=== PATIENT | female | born 1950 | race Caucasian/White ===

== ENCOUNTER → 2017-11-07 14:10 | Outpatient (REF) | payer OTHER, SELFPAY ==
[2017-11-07 22:18] LABS: C-Reactive Protein 0.35 mg/dL (0.0-0.3)
[2017-11-07 23:07] LABS: ESR 8 MM/HR (0-30)
[2017-11-09 10:21] LABS: Rheumatoid Factor <8 IU/mL (<12.5)
[2017-11-09 14:23] LABS: ANA Interpretation Negative (NEGAT)
== END ==
LOC: NCHCN 14:10
PROVIDERS: PCP Physician Assistant Medical; Visit Provider Physician Assistant Medical
DX: M79.643 Pain in unspecified hand (principal)
CPT/HCPCS: 85652; 86038; 86140; 86431

== ENCOUNTER 2018-05-29 08:14 | Outpatient (REF) | payer OTHER, SELFPAY ==
[2018-05-29 13:34] LABS: HCT 42.5 % (36.0-46.0); HGB 13.8 g/dL (12.0-15.5); Mean Corp. HGB Concentration 32.5 g/dL (32.0-36.0); Mean Corpuscular Hemoglobin 29.7 pg (27.0-33.0); Mean Corpuscular Volume 91.6 fL (80-95); Mean Platelet Volume 10.4 fL (8.0-11.0); Platelet Count 351 x1000/uL (130-400); RBC 4.64 m/cumm (4.00-5.20)
== END 2018-05-29 08:34 ==
LOC: NCHCN 08:14
PROVIDERS: PCP Family Medicine; Visit Provider Family Medicine
DX: I10 Essential (primary) hypertension (principal); R73.9 Hyperglycemia, unspecified
CPT/HCPCS: 80053; 85027

== ENCOUNTER 2018-06-01 09:04 | Outpatient (REF) | payer OTHER, SELFPAY ==
[2018-06-01 12:26] LABS: ALT 21 U/L (12-78); AST 16 U/L (15-37); Albumin 3.7 g/dL (3.4-5.0); Alkaline Phosphatase 121 U/L (46-116); Anion Gap 9.6 mmol/L (3-11); BUN 14 mg/dL (7-18); Bilirubin, Total 0.4 mg/dL (0.2-1.0); CO2 27.4 mmol/L (21.0-32.0); CREATININE 0.65 mg/dL (0.55-1.02); Calcium 8.9 mg/dL (8.5-10.1); Chloride 105 mmol/L (98-107); Cholesterol 241 mg/dL (50-200); Glucose 100 mg/dL (70-100); HDL Cholesterol 46 mg/dL (40-60); LDL CHOLESTEROL 183 mg/dL (<100); Potassium 4.4 mmol/L (3.5-5.1); Sodium 142 mmol/L (136-145); Total Protein 6.7 g/dL (6.4-8.2); Triglyceride 56 mg/dL (30-150)
== END 2018-06-01 09:24 ==
LOC: NCHCN 09:04
PROVIDERS: PCP Family Medicine; Visit Provider Family Medicine
DX: I10 Essential (primary) hypertension (principal); R73.9 Hyperglycemia, unspecified; Z00.00 Encounter for general adult medical examination without abnormal findings
CPT/HCPCS: 80053; 80061; 83721

== ENCOUNTER 2018-06-29 00:42 | Outpatient (CLI) | payer OTHER, SELFPAY ==
--- NOTE | 2018-06-29 15:22 | DI.RAD_ITS ---
SYMPTOMS/DIAGNOSIS: SCREENING FOR OSTEOPOROSIS, Z13.820, MENOPAUSE, Z78.0 DEXA SCAN: DEXA scan was performed according to the usual protocol. Findings for left hip scanning are a T score of -2.1 with left femoral neck T score of -2.7. Findings for lumbar spine scanning are a T score of -2.7. Findings for right forearm scanning are a T score of -4.2. CONCLUSION: Findings consistent with osteoporosis according to the WHO criteria. Please note that the lateral vertebral scanogram shows no evidence of a vertebral compression fracture.
--- NOTE | 2018-06-29 15:52 | DI.MAMMO_ITS ---
SYMPTOM/DIAGNOSIS: SCREENING, Z12.31 MAMMOGRAMS: Mammograms were interpreted according to the usual protocol including computer analysis with CAD system, tomosynthesis and C view imaging. The breasts are of moderate density with fairly symmetrical distribution of fibroglandular tissue. No dominant mass or clumped microcalcification is identified in either breast. The examination is compared with previous examinations including 01/2016 and there has been no gross interval change in appearance in comparison with the previous studies. CONCLUSION: No specific evidence of malignancy at this time. Routine screening examinations are suggested at yearly intervals in this age group according to the ACS/ACR guidelines. Category 1. Breast density, category B. MQSA ASSESSMENT OF FINDINGS: Negative. Category 1. Patient will receive a letter notifying them of these results. BI-RADS category B. There are scattered areas of fibroglandular density.
== END 2018-06-29 01:02 ==
PROVIDERS: PCP Family Medicine; Visit Provider Nurse Practitioner
DX: M81.0 Age-related osteoporosis without current pathological fracture (principal); Z78.0 Asymptomatic menopausal state; Z12.31 Encounter for screening mammogram for malignant neoplasm of breast
CPT/HCPCS: 77063; 77067; 77080

== ENCOUNTER 2019-01-25 10:13 | Outpatient (REF) | payer OTHER, SELFPAY | END 2019-01-25 10:33 | LOC: NCHCN 10:13 | PROVIDERS: PCP Family Medicine; Visit Provider Nurse Practitioner Family | DX: R39.9 Unspecified symptoms and signs involving the genitourinary system (principal); K59.00 Constipation, unspecified; N76.0 Acute vaginitis | CPT/HCPCS: 87086 ==

== ENCOUNTER 2019-02-28 14:05 | Outpatient (CLI) | payer OTHER, SELFPAY ==
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
== END 2019-02-28 14:25 ==
PROVIDERS: PCP Family Medicine; Visit Provider Nurse Practitioner Family
DX: R05 Cough (principal)
CPT/HCPCS: 71046

== ENCOUNTER 2019-04-15 10:50 | Emergency (ER) | payer OTHER, SELFPAY ==
[2019-04-15 11:00] VITALS: BP 184/70; PULSE 80; RESP 18; TEMP 36.6; O2SAT 95
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
[2019-04-15] MEDS: Lidocaine 5% Patch 1 PATCH TP (12:35)
[2019-04-15] MEDS: Cyclobenzaprine 10 MG TAB PO (12:35)
== END 2019-04-15 13:24 | disposition home or self-care (01) ==
PROVIDERS: Emergency Provider Physician Assistant; PCP Family Medicine
DX: S13.4XXA Sprain of ligaments of cervical spine, initial encounter (principal); V43.53XA Car driver injured in collision with pick-up truck in traffic accident, initial encounter; W22.11XA Striking against or struck by driver side automobile airbag, initial encounter
CPT/HCPCS: 99284; 70450; 72125; 99285

== ENCOUNTER 2020-01-30 15:58 | Outpatient (REF) | payer OTHER, SELFPAY ==
[2020-02-04 06:49] LABS: Patient Race White; SARS-CoV-2 RNA Undetected (Undetected); SARS-CoV-2 Specimen Source Nasal
== END 2020-01-30 16:18 ==
LOC: NCHCN 15:58
PROVIDERS: PCP Family Medicine; Visit Provider Family Medicine
DX: Z11.59 Encounter for screening for other viral diseases (principal)
CPT/HCPCS: U0003

== ENCOUNTER 2021-02-16 15:16 | Outpatient (REF) | payer OTHER, SELFPAY ==
[2021-02-17 13:21] LABS: COVID-19 RT-PCR UVMMC Result Negative (Negative)
== END 2021-02-16 15:17 | disposition home or self-care (01) ==
LOC: NCHCN 15:16
PROVIDERS: PCP Family Medicine; Visit Provider Family Medicine
DX: Z20.822 Contact with and (suspected) exposure to COVID-19 (principal)
CPT/HCPCS: U0003

== ENCOUNTER 2021-03-20 08:03 | Outpatient (REF) | payer OTHER, SELFPAY ==
[2021-03-20 14:20] LABS: ALT 23 U/L (14-59); AST 14 U/L (15-37); Albumin 3.9 g/dL (3.4-5.0); Alkaline Phosphatase 124 U/L (46-116); Anion Gap 8.3 mmol/L (3-11); BUN 18 mg/dL (7-18); Bilirubin, Total 0.3 mg/dL (0.2-1.0); CO2 29.7 mmol/L (21.0-32.0); CREATININE 0.8 mg/dL (0.55-1.02); Calculated LDL 233 mg/dL (<100); Chloride 102 mmol/L (98-107); Cholesterol 298 mg/dL (<200); Glucose 102 mg/dL (74-106); HDL Cholesterol 51 mg/dL (40-60); Potassium 4.8 mmol/L (3.5-5.1); Sodium 140 mmol/L (136-145); Triglyceride 70 mg/dL (<150)
== END 2021-03-20 08:04 | disposition home or self-care (01) ==
LOC: NCHCN 08:03
PROVIDERS: PCP Family Medicine; Visit Provider Family Medicine
DX: I10 Essential (primary) hypertension (principal); R73.03 Prediabetes; Z00.00 Encounter for general adult medical examination without abnormal findings
CPT/HCPCS: 80053; 80061

== ENCOUNTER 2021-10-01 11:45 | Outpatient (CLI) | payer OTHER, SELFPAY ==
--- NOTE | 2021-10-01 11:15 | DI.RAD_ITS ---
Exam(s) XR HAND RT COMPLETE EXAM: XR HAND RT COMPLETE CLINICAL HISTORY: cyst of dorsalradial hand - ?CMC disease. TECHNIQUE: 2D digital imaging was performed. COMPARISON: No exams were available for comparison FINDINGS: 3 views No evidence of fracture nor dislocation.. No osseous lesions. No radiopaque foreign body. No erosi ons. IMPRESSION: No significant focal osseous findings in the right hand. DATA REPOSITORY: RADIATION DOSE DELIVERED:
== END 2021-10-01 11:46 | disposition home or self-care (01) ==
LOC: DIORS 11:45
PROVIDERS: PCP Family Medicine; Referring Provider Family Medicine; Visit Provider Student in an Organized Health Care Education/Training Program
DX: M25.841 Other specified joint disorders, right hand (principal)
CPT/HCPCS: 73130

== ENCOUNTER 2021-10-06 07:33 | Day surgery (SDC) | payer OTHER, SELFPAY ==
--- NOTE | 2021-10-06 07:37 | PDOC.DSDIS_ITS ---
Discharge Plan Disposition Patient Disposition: HOME Condition: Good Discharge Details Reason For Visit: Right hand cyst Attending Provider: Joshua Cox Primary Care Provider: Ashanti Pradhan Home Meds and New Rx's Prescriptions: New tramadol 50 mg tablet 50 mg PO Q4H PRN (Reason: severe postoperative pain) Qty: 5 0RF Rx Instructions: Take one tablet up to every 4 hours as needed for severe pain ibuprofen 600 mg tablet 600 mg PO TID PRN (Reason: pain) Qty: 30 3RF Continued nystatin 100,000 unit/gram powder 1 applic topical TID Qty: 60 0RF epinephrine [EpiPen 2-Luis M] 0.3 MG/0.3 ML auto-injector 0.3 mg IM ONCE Qty: 1 Label Comments: Pt. has never had to use her Epi-Pen. fluticasone propionate [Flovent HFA] 12 GM HFA aerosol inhaler 220 mcg Inhalation BID PRNQty: 2 ProAir RespiClick 90 MCG aerosol powdr breath activated 90 mcg Inhalation Q4H PRN desonide 15 GM cream 15 g Topical BID fluocinolone 15 GM cream 15 g Topical DAILY buspirone 7.5 MG tablet 7.5 mg PO BID gabapentin 100 mg capsule 100 mg PO DAILY PRN budesonide-formoterol 160-4.5 mcg/actuation HFA aerosol inhaler 2 puff inhalation BID alendronate 70 mg tablet 70 mg PO QWEEK sulfacetamide sodium (acne) 10 % suspension 1 applic topical ONCE nystatin 100,000 unit/gram cream 1 applic topical BID clobetasol 0.05 % ointment 1 applic topical DAILY Psyllium [Metamucil] 1 EACH Pkt 1 ea PO PRN PRN PreserVision AREDS [id number] Capsule 1 cap PO DAILY calcium phos,dibas-vitamin D3 77-400 mg-unit Tablet 1 tab PO Label Comments: pt. reports it is a 500 mg cyclobenzaprine 5 mg tablet 5 mg PO TID PRN (Reason: muscle spasm) Qty: 10 0RF Discontinued meloxicam 7.5 mg tablet 7.5 mg PO DAILY PRN Label Comments: pt. reports it has been about a year since taking candesartan 32 mg tablet 32 mg PO DAILY Label Comments: pt hasnt taken since April naproxen sodium [Aleve] 220 MG tablet 220 - 440 mg PO PRN PRN Discharge Instructions Additional Instructions: Cyst Excision Discharge Instructions Activity: You may use your hand for light activity. You should limit any excessive motion or forceful gripping until follow-up. Dressings: You should keep the initial surgical dressing in place for at least 3 days. You may remove your dressings and get the wound wet after 3 days. You should keep the dressings and the wound clean at all times. After removing your initial dressing you should cover the incision with a large bandaid and complete daily dressing changes. Medications: - You should take Ibuprofen or Naproxen around the clock as prescribed or per administrative services specialist's recommendations. - You have Tramadol prescribed for breakthrough pain control. Take only as needed and limit use as much as possible. This may cause constipation. Follow-up: 7-10 days for wound check. Referrals: Joshua Cox MD [ [facility] STAFF PHYSICIAN] - Activity:: Elevate Remove Dressings/Wound Care:: 72 hours Shower/Bathe:: 72 hours Diet:: As Tolerated Discharge Orders Discharge Orders: Discharge Order (Routine); Ordered 10/06/21 Ordered By: Amberly Coleman
[2021-10-06 08:03] VITALS: BP 157/63; PULSE 81; RESP 16; TEMP 36.5; O2SAT 97
--- NOTE | 2021-10-06 08:38 | ANES.PREOP_ITS ---
General Info Date of Service Date Performed: 10/06/21 Height: 5 ft 3 in Weight: 84.9 kg Body Mass Index (BMI): 33.1 Surgical Procedure: Operation Date: 10/06/21 09:55 Proposed Procedure Side Surgeon p Hand Excision Cyst Right Joshua Cox MD Meds Allergies and Home Medications Allergies Allergy/AdvReac Type Severity Reaction Status Date / Time acetaminophen Allergy Severe Other (See Unverified 10/06/21 08:04 [From Darvocet-N] Comment) codeine Allergy Severe Throat Unverified 10/06/21 08:05 Swells/Can't breath latex Allergy Severe Skin Rash Unverified 10/06/21 08:05 oxycodone [Oxycodone] Allergy Severe CONVULSION Unverified 10/06/21 08:05 propoxyphene napsylate Allergy Severe Other (See Unverified 10/06/21 08:05 [From Darvocet-N] Comment) venom-honey bee Allergy Severe HIVES Unverified 10/06/21 08:05 hydrocodone bitartrate Allergy Intermediate rash,swelli Unverified 10/06/21 08:05 [From Vicodin] ng,SOB varenicline tartrate Allergy Mild Other (See Unverified 10/06/21 08:05 [From Chantix] Comment) simvastatin AdvReac Mild NAUSEA Unverified 10/06/21 08:05 WELLBUUTRIN Allergy Mild Nausea Uncoded 10/06/21 08:05 Home Medication Medication Instructions Recorded Psyllium [Metamucil] 1 ea PO PRN PRN 05/07/14 epinephrine 0.3 mg/0.3 mL 0.3 mg IM ONCE #1 pen 07/03/15 injection, auto-injector (EpiPen 2-Luis M) fluticasone propionate 220 220 mcg inhalation BID PRN ##2 01/26/16 mcg/actuation HFA aerosol inhaler (Flovent HFA) albuterol sulfate 90 mcg/actuation 90 mcg inhalation Q4H PRN 05/30/17 breath activated powder inhaler (ProAir RespiClick) buspirone 7.5 mg tablet 7.5 mg PO BID 05/30/17 desonide 0.05 % topical cream 15 g topical BID 05/30/17 fluocinolone 0.01 % topical cream 15 g topical DAILY 05/30/17 cyclobenzaprine 5 mg tablet 5 mg PO TID PRN muscle spasm #10 04/15/19 tabs alendronate 70 mg tablet 70 mg PO QWEEK 08/17/21 budesonide-formoterol HFA 160 2 puff inhalation BID 08/17/21 mcg-4.5 mcg/actuation aerosol inhaler gabapentin 100 mg capsule 100 mg PO DAILY PRN 08/17/21 clobetasol 0.05 % topical ointment 1 applic topical DAILY 09/08/21 nystatin 100,000 unit/gram topical 1 applic topical BID 09/08/21 cream sulfacetamide sodium (acne) 10 % 1 applic topical ONCE 09/08/21 lotion (suspension) nystatin 100,000 unit/gram topical 1 applic topical TID Fungal 10/05/21 powder infection #60 grams vitamins A,C,Y-sptq-pubdbp 14,320 1 cap PO DAILY 10/05/21 unit-226 mg-200 unit capsule (PreserVision AREDS) calcium phosphate,dibasic 77 1 tab PO 10/06/21 mg-vitamin D3 400 unit tablet ibuprofen 600 mg tablet 600 mg PO TID PRN pain #30 tabs 10/06/21 tramadol 50 mg tablet 50 mg PO Q4H PRN severe 10/06/21 postoperative pain #5 tabs Current Visit Medications: Current Medications Generic Name Dose Route Start Last Admin Trade Name Freq PRN Reason Stop Dose Admin Sodium Chloride 500 mls @ 0 mls/hr 10/06/21 07:29 Saline 500ml Bag IV PRN PRN As Directed Ringer's Solution 1,000 mls @ 80 mls/hr 10/06/21 06:00 IV 10/06/21 23:59 INFUSION [facility] IV Miscellaneous Supplies 1 each 10/06/21 07:30 Iv Access IV DIRECTED [facility] Sodium Chloride 0 ml 10/06/21 07:29 Normal Saline Flush 10 Ml Syr IVP PRN PRN PFSH Active Problems Active Problems: Problem Status Onset Code Bleeding diathesis 01/22/13 D69.9 Essential hypertension 12/08/12 I10 COPD (chronic obstructive pulmonary disease) J44.9 Skin cyst L72.9 Yeast dermatitis B37.2 Von Willebrand disease D68.0 Cyst of joint of right hand M25.841 Medical History Medical History Acute whiplash injury Anal fissure Ankle fracture, right Anorexia nervosa (11/26/08) Anxiety Atypical nevus of multiple sites (01/22/15) seborrheic keratoses Breast pain, right Bulimia nervosa (11/26/08) Depressive disorder Eczema Hair thinning (01/22/15) History of cervical cancer (02/25/17) IBS (irritable bowel syndrome) Keratosis, seborrheic (02/25/17) Macular degeneration Migraine Neck pain Neoplasm of unspecified nature of bone, soft tissue, and skin (10/06/15) Osteoporosis Rectal bleeding (09/19/13) Rosacea (01/22/15) Sciatica Surgical History Surgical History Appendectomy Pt. denies this states she still has it History of open reduction and internal fixation (ORIF) procedure r ankle Tonsillectomy Tobacco Smoking/Tobacco Use Status: Current every day Tobacco Type: cigarettes Smoking cigarettes per day: 10 Alcohol Alcohol Intake: current Alcohol intake frequency: holidays/special occasions only Substance Use Substance use: Rarely Substance use type: marijuana Details: alcohol: in january. Marijuana: about two years ago Vital Signs and Lab Results Vital Signs Most Recent Vital Signs in EMR: Most Recent Vital Signs Temp Pulse Resp BP Pulse Ox 36.5 C 81 16 157/63 H 97 10/06/21 08:03 10/06/21 08:03 10/06/21 08:03 10/06/21 08:03 10/06/21 08:03 Lab Results Blood Type / Crossmatch: No Data to Display Complete Blood Count: No Data to Display Complete Metabolic Panel: No Data to Display Liver Function Panel: No Data to Display Coagulation Panel: No Data to Display Cardiac Panel: No Data to Display Arterial Blood Gas: No Data to Display Venous Blood Gas: No Data to Display Pancreas Panel: No Data to Display Thyroid Panel: No Data to Display Infectious Disease: No Data to Display Blood Cultures: No Data to Display Toxicology Panel: No Data to Display Anesthesia Assessment and Plan Anesthesia History Personal History: No History of Anesthesia Complications Family History: No Family History of Anesthesia Complications Exercise Tolerance Exercise Tolerance: Metabolic Equivalents>4 Pertinent Negatives Pertinent Negatives: No Symptoms of GERD, No Major Cardiovascular Symptoms or Complaints, No Major Pulmonary Symptoms or Complaints and No History of CVA/TIA Cardiac & Pulmonary Exam Cardiac Exam: Normal S1/S2 Heart Sounds Pulmonary Exam: Clear Bilateral Breath Sounds Implantable Cardiac Device Does patient have a Pacemaker or an ICD?: No Airway Exam Known Difficult Airway: No Mallampati Class: 3 Mouth Opening: Normal (> 3cm) Thyromental Distance: Less than 3 cm Neck Range of Motion: Full ROM Neck Circumference: Normal Teeth Condition: Removable Dentures/Plates Upper and Removable Dentures/Plates Lower ASA Classification ASA Score: ASA 3 Emergency Case?: No NPO Status NPO Status: NPO Clears >2 hours, Solids >8 hours Anesthesia Plan Resuscitation Status: Full Code Anesthesia Technique: IV Regional ([place] Block) Airway Planned: Natural Airway Pain Management: Surgeon and patient request nerve block Monitors Used: Standard Monitors
[2021-10-06] MEDS: Lactated Ringers 1,000 ML 80 ML IV (08:45)
--- NOTE | 2021-10-06 09:25 | W.PREOPHP ---
Assessment and Plan Assessment and plan (1) Cyst of joint of right hand: Status: Acute Assessment and plan: Melanie is a 71-year-old who has a cyst of her dorsal right hand. She is here today for excision. I reviewed the procedure with her in detail. I discussed the risk to include bleeding, infection, pain, stiffness, recurrence, damage to nerves and vessels. Despite these risks, she elected to proceed. History of Present Illness History of Present Illness Chief Complaint: Right hand cyst Narrative: Melanie presents today for her right hand cyst. Please see the previous office note for complete detailed history. She is here today for cyst excision. She denies any acute medical changes. Review of Systems All systems reviewed & are unremarkable except as noted in HPI and below PFSH All Active Problems Bleeding diathesis (Acute 01/22/13) Essential hypertension (Acute 12/08/12) COPD (chronic obstructive pulmonary disease) (Chronic) Skin cyst (Acute) Yeast dermatitis (Acute) Von Willebrand disease (Acute) Cyst of joint of right hand (Acute) Medical History Acute whiplash injury Anal fissure Ankle fracture, right Anorexia nervosa (11/26/08) Anxiety Atypical nevus of multiple sites (01/22/15) seborrheic keratoses Breast pain, right Bulimia nervosa (11/26/08) Depressive disorder Eczema Hair thinning (01/22/15) History of cervical cancer (02/25/17) IBS (irritable bowel syndrome) Keratosis, seborrheic (02/25/17) Macular degeneration Migraine Neck pain Neoplasm of unspecified nature of bone, soft tissue, and skin (10/06/15) Osteoporosis Rectal bleeding (09/19/13) Rosacea (01/22/15) Sciatica Surgical History Appendectomy Pt. denies this states she still has it History of open reduction and internal fixation (ORIF) procedure r ankle Tonsillectomy Family History Mother Personal history of malignant neoplasm Lung Father Essential hypertension Diabetes Personal history of malignant neoplasm Heart disease Sister Personal history of malignant neoplasm Brother Essential hypertension Diabetes Heart disease Grandfather Personal history of malignant neoplasm Grandfather No problems noted. Grandmother No problems noted. Grandmother No problems noted. Other Stroke Social History Smoking/Tobacco Use Status: Current every day Tobacco Type: cigarettes Smoking risk assessment performed?: Yes Alcohol Intake: current Alcohol Intake frequency: holidays/special occasions only Drug use: Rarely Substance use type: marijuana Details: alcohol: in january. Marijuana: about two years ago Do you feel safe at home: Yes Do you feel safe in your relationship?: Yes Meds Allergies and Home Medications Allergies Allergy/AdvReac Type Severity Reaction Status Date / Time acetaminophen Allergy Severe Other (See Unverified 10/06/21 08:04 [From Darvocet-N] Comment) codeine Allergy Severe Throat Unverified 10/06/21 08:05 Swells/Can't breath latex Allergy Severe Skin Rash Unverified 10/06/21 08:05 oxycodone [Oxycodone] Allergy Severe CONVULSION Unverified 10/06/21 08:05 propoxyphene napsylate Allergy Severe Other (See Unverified 10/06/21 08:05 [From Darvocet-N] Comment) venom-honey bee Allergy Severe HIVES Unverified 10/06/21 08:05 hydrocodone bitartrate Allergy Intermediate rash,swelli Unverified 10/06/21 08:05 [From Vicodin] ng,SOB varenicline tartrate Allergy Mild Other (See Unverified 10/06/21 08:05 [From Chantix] Comment) simvastatin AdvReac Mild NAUSEA Unverified 10/06/21 08:05 WELLBUUTRIN Allergy Mild Nausea Uncoded 10/06/21 08:05 Home Medications Medication Instructions Recorded Confirmed Type Psyllium [Metamucil] 1 ea PO PRN PRN 05/07/14 10/06/21 History naproxen sodium 220 mg tablet 220 - 440 mg PO PRN PRN 05/07/14 10/06/21 History (Aleve) epinephrine 0.3 mg/0.3 mL 0.3 mg IM ONCE #1 pen 07/03/15 10/06/21 History injection, auto-injector (EpiPen 2-Luis M) fluticasone propionate 220 220 mcg inhalation BID PRN ##2 01/26/16 10/06/21 History mcg/actuation HFA aerosol inhaler (Flovent HFA) albuterol sulfate 90 mcg/actuation 90 mcg inhalation Q4H PRN 05/30/17 10/06/21 History breath activated powder inhaler (ProAir RespiClick) buspirone 7.5 mg tablet 7.5 mg PO BID 05/30/17 10/06/21 History desonide 0.05 % topical cream 15 g topical BID 05/30/17 10/06/21 History fluocinolone 0.01 % topical cream 15 g topical DAILY 05/30/17 10/06/21 History cyclobenzaprine 5 mg tablet 5 mg PO TID PRN muscle spasm #10 04/15/19 10/06/21 Rx tabs alendronate 70 mg tablet 70 mg PO QWEEK 08/17/21 10/06/21 History budesonide-formoterol HFA 160 2 puff inhalation BID 08/17/21 10/06/21 History mcg-4.5 mcg/actuation aerosol inhaler candesartan 32 mg tablet 32 mg PO DAILY 08/17/21 10/06/21 History gabapentin 100 mg capsule 100 mg PO DAILY PRN 08/17/21 10/06/21 History meloxicam 7.5 mg tablet 7.5 mg PO DAILY PRN 08/17/21 10/06/21 History clobetasol 0.05 % topical ointment 1 applic topical DAILY 09/08/21 10/06/21 History nystatin 100,000 unit/gram topical 1 applic topical BID 09/08/21 10/06/21 History cream sulfacetamide sodium (acne) 10 % 1 applic topical ONCE 09/08/21 10/06/21 History lotion (suspension) nystatin 100,000 unit/gram topical 1 applic topical TID Fungal 10/05/21 10/06/21 Rx powder infection #60 grams vitamins A,C,L-ghti-sqncbt 14,320 1 cap PO DAILY 10/05/21 10/06/21 History unit-226 mg-200 unit capsule (PreserVision AREDS) calcium phosphate,dibasic 77 1 tab PO 10/06/21 History mg-vitamin D3 400 unit tablet Exam Resp Effort & Inspection: normal respiratory effort Auscultation: clear to auscultation bilaterally Cardio Rate: regular rate Rhythm: regular rhythm Results Last Vital Signs Temp 36.5 C 10/06/21 08:03 Pulse 81 10/06/21 08:03 Resp 16 10/06/21 08:03 BP 157/63 H 10/06/21 08:03 Pulse Ox 97 10/06/21 08:03
[2021-10-06] MEDS: Lidocaine 1% Multi-Dose W/EPI 1/100,000 50 ML VIAL (10:04)
[2021-10-06 10:20] VITALS: BP 158/69; PULSE 73; RESP 16; TEMP 36.7; O2SAT 97
[2021-10-06 10:50] VITALS: BP 153/67; PULSE 71; RESP 16; TEMP 36.3; O2SAT 95
[2021-10-06 11:15] VITALS: BMI 33.1
--- NOTE | 2021-10-06 11:15 | W.ANESPOSTOP ---
Postoperative Evaluation Date, Time and Location Date Performed: 10/06/21 Time Performed: 11:19 Patient Location: Day Surgery Unit Vital Signs Most Recent Imported Vital Signs: Most Recent Vital Signs Temp Pulse Resp BP Pulse Ox 36.7 C 73 16 158/69 H 97 10/06/21 10:20 10/06/21 10:20 10/06/21 10:20 10/06/21 10:20 10/06/21 10:20 Pain Score Most Recent Pain Score: Most Recent Pain Score Pain Level 0 10/06/21 10:20 Assessment Mental Status: Awake (Alert & Oriented to Patient Baseline) Airway and Respiratory Function: Patent airway with normal (patient baseline) respiratory exam Cardiovascular Function: Hemodynamically Stable Hydration Status: Adequately Hydrated Nausea & Vomiting: No Nausea or Vomiting Pain: Pt. Denies Any Pain Peripheral Nerve Block: Regional nerve block not resolved at time of post operative discharge (Mostly resolved audrey block) Postoperative Comments:: Patient experienced symptoms of LAST intraoperatively. We discussed reason (high blood pressures post initiation of block caused local to push by the cuff). Patient experienced auditory, oral, and some fear related to the LAST. No CV symptoms, no dysrhythmias, blood pressure remained stable throughout. No neurological symptoms apart from what was mentioned. Patient symptoms resolved quickly. Discussed in real time and then I sat with the patient postoperatively until her questions were answered. I also checked in on the patient one more time prior to discharge. Patient was educated to contact anesthesia if any questions or concerns. Numbers provided on discharge sheet.
--- NOTE | 2021-10-06 16:09 | ROE_ITS ---
Date of service: 10/06/21 Time of Service: 09:50 Operative Note Operative Note DATE OF PROCEDURE: 10/06/21 PRE-OP DIAGNOSIS: Right Dorsal Wrist Ganglion Cyst POST-OP DIAGNOSIS: same PROCEDURE: Excision of dorsal wrist ganglion cyst - Right wrist SURGEON: Joshua Cox ANESTHESIA TYPE: MAC and Susan Block Refer to Anesthesia Record ESTIMATED BLOOD LOSS: 20 PATHOLOGY: none sent COMPLICATIONS: None Patient was transported to: PACU Patient's condition: stable Indications: Melanie is a 71 year old female who I have seen for a dorsal wrist ganglion cyst. It has continued to be bothersome despite some conservative options. Its size and interference with activities continues to cause problems. Therefore, I offered excision of the volar wrist cyst. I discussed the risks to include bleeding, infection, pain, stiffness, damage to nerve and vessels, recurrence. Despite these risks, she elects to proceed. Findings: There was a large cyst about the dorsal 1st webspace which communicated down to the 1st CMC joint. Procedure Description: Melanie was greeted in the preoperative holding area. Identity was confirmed and the correct site was identified and marked. Consent was reviewed the patient and signed. History and physical was updated. The patient was taken to the operating room and placed in supine position. All bony prominences were well-padded. A nonsterile tourniquet was placed high up onto the right arm. A timeout for safe surgery was performed. A [place] block was then administered by anesthesia. The arm was prepped with ChloraPrep and draped in a standard fashion. She then started complaining of some hearing difficulties and some other sensations about her face without any cardiac changes. He was also noted to have increasing venous backlog within the right upper extremity with an increase in blood pressure which likely represented a failure of the cuff to a certain extent with last syndrome. This was monitored closely and she still maintained stability and did not have any cardiac findings. However, she did have complete numbness of the right arm so I then performed a local field block to assist using 1% lidocaine with epinephrine. An [place]arch tourniquet was then utilized to create a secondary tourniquet due to the venous tourniquet which we had currently. Then, the skin was incised sharply. Deeper dissection was carried out with tenotomy scissors and careful attention to vascular branches in this area. The mass was identified and protected with dissection carried around. Once was fully identified it was deflated and the cyst stalk was followed down to the carpus. The cyst structure was resected and its origin from the carpus was opened with tenotomy scissors and rongeur. The wound was then thoroughly irrigated. The Esmarch tourniquet was removed. The deep layer was reapproximated with a 3-0 Vicryl. The skin was closed with a running 4-0 Monocryl but unfortunately would not hold. Therefore, I continued close the skin with a 4-0 nylon in interrupted fashion. This was then followed by gauze, Kerlex, and Carlos wrap. At the end the case all counts were correct. The patient was awakened from anesthesia and taken to the PACU in stable condition. There were no noted co mplications.
== END 2021-10-06 11:11 | disposition home or self-care (01) ==
PROVIDERS: PCP Family Medicine; Visit Provider Student in an Organized Health Care Education/Training Program
PROC: (CPT 26160; principal; 2021-10-06 09:45)
DX: M67.431 Ganglion, right wrist (principal); J44.9 Chronic obstructive pulmonary disease, unspecified; I10 Essential (primary) hypertension; D68.0 Von Willebrand disease
CPT/HCPCS: 25111; J2250

== ENCOUNTER 2021-10-08 18:19 | Emergency (ER) | payer OTHER, SELFPAY ==
[2021-10-08 18:25] VITALS: BP 151/63; PULSE 94; RESP 14; TEMP 37.1; O2SAT 94
--- NOTE | 2021-10-08 18:58 | ED.GENADUL_ITS ---
Discharge Plan Disposition Patient Disposition: HOME Condition: Stable Discharge Details Clinical Impression: Ecchymosis Primary Care Provider: Ashanti Pradhan ED Provider: Dustin Reyes Home Meds and New Rx's Prescriptions: Continued nystatin 100,000 unit/gram powder 1 applic topical TID Qty: 60 0RF epinephrine [EpiPen 2-Luis M] 0.3 MG/0.3 ML auto-injector 0.3 mg IM ONCE Qty: 1 Label Comments: Pt. has never had to use her Epi-Pen. fluticasone propionate [Flovent HFA] 12 GM HFA aerosol inhaler 220 mcg Inhalation BID PRNQty: 2 ProAir RespiClick 90 MCG aerosol powdr breath activated 90 mcg Inhalation Q4H PRN desonide 15 GM cream 15 g Topical BID fluocinolone 15 GM cream 15 g Topical DAILY buspirone 7.5 MG tablet 7.5 mg PO BID gabapentin 100 mg capsule 100 mg PO DAILY PRN budesonide-formoterol 160-4.5 mcg/actuation HFA aerosol inhaler 2 puff inhalation BID alendronate 70 mg tablet 70 mg PO QWEEK sulfacetamide sodium (acne) 10 % suspension 1 applic topical ONCE nystatin 100,000 unit/gram cream 1 applic topical BID clobetasol 0.05 % ointment 1 applic topical DAILY Psyllium [Metamucil] 1 EACH Pkt 1 ea PO PRN PRN PreserVision AREDS [id number] Capsule 1 cap PO DAILY calcium phos,dibas-vitamin D3 77-400 mg-unit Tablet 1 tab PO Label Comments: pt. reports it is a 500 mg tramadol 50 mg tablet 50 mg PO Q4H PRN (Reason: severe postoperative pain) Qty: 5 0RF Rx Instructions: Take one tablet up to every 4 hours as needed for severe pain ibuprofen 600 mg tablet 600 mg PO TID PRN (Reason: pain) Qty: 30 3RF cyclobenzaprine 5 mg tablet 5 mg PO TID PRN (Reason: muscle spasm) Qty: 10 0RF Discharge Instructions Additional Instructions: This appears to be normal postprocedural bruising. Continue following the instructions given to you by orthopedics. Elevation will help bring the swelling and bruising down. Please watch for new or worsening symptoms and return to the ER for any concerns Medical Decision Making 71-year-old female presents for discoloration of her right hand status post ganglion cyst removal on Tuesday. The dressing had soaked through so she was evaluated by orthopedics today, dressing was reapplied she reports slightly tighter than previous. Clinically it appears as though she has some mild swelling and ecchymosis likely secondary to her recent procedure. There has been no recent trauma. Neuro, vascular, tendon intact. The dressing was removed and reapplied slightly looser than original dressing when she applied. No evidence of secondary infection. Normal radial pulse and capillary refill. Standard discharge and return precautions were provided. Patient understands, is agreeable to this plan, and has no additional questions or concerns upon discharge. This documentation was generated using [employer] system, please disregard any oddities of phrase or misspellings. Medical Records Medical records reviewed: Yes I reviewed the patient's medical records. HPI General Mode of arrival: ambulatory . Date/Time Provider Initiated Documentation: 10/08/21 18:20 . Limitations to Documentation: no limitations . Information obtained by: patient . HPI Narrative: This is a 71-year-old female who had a ganglion cyst removed by Dr. Cox on Tuesday, reports that she has some bleeding through the dressing and was evaluated today, dressing changed, but now noticed some bruising in her fingers that was not present. She denies easy bruising or bleeding at baseline she is not anticoagulated. Denies recent illness or trauma, numbness, tingling, weakness. She has no pain but is concerned with the change in coloration. Related Data Home Medications Medication Instructions Recorded Confirmed Psyllium [Metamucil] 1 ea PO PRN PRN 05/07/14 10/08/21 epinephrine 0.3 mg/0.3 mL 0.3 mg IM ONCE #1 pen 07/03/15 10/08/21 injection, auto-injector (EpiPen 2-Luis M) fluticasone propionate 220 220 mcg inhalation BID PRN ##2 01/26/16 10/08/21 mcg/actuation HFA aerosol inhaler (Flovent HFA) albuterol sulfate 90 mcg/actuation 90 mcg inhalation Q4H PRN 05/30/17 10/08/21 breath activated powder inhaler (ProAir RespiClick) buspirone 7.5 mg tablet 7.5 mg PO BID 05/30/17 10/08/21 desonide 0.05 % topical cream 15 g topical BID 05/30/17 10/08/21 fluocinolone 0.01 % topical cream 15 g topical DAILY 05/30/17 10/08/21 cyclobenzaprine 5 mg tablet 5 mg PO TID PRN muscle spasm #10 04/15/19 10/08/21 tabs alendronate 70 mg tablet 70 mg PO QWEEK 08/17/21 10/08/21 budesonide-formoterol HFA 160 2 puff inhalation BID 08/17/21 10/08/21 mcg-4.5 mcg/actuation aerosol inhaler gabapentin 100 mg capsule 100 mg PO DAILY PRN 08/17/21 10/08/21 clobetasol 0.05 % topical ointment 1 applic topical DAILY 09/08/21 10/08/21 nystatin 100,000 unit/gram topical 1 applic topical BID 09/08/21 10/08/21 cream sulfacetamide sodium (acne) 10 % 1 applic topical ONCE 09/08/21 10/08/21 lotion (suspension) vitamins A,C,L-uupp-bnrirq 14,320 1 cap PO DAILY 10/05/21 10/08/21 unit-226 mg-200 unit capsule (PreserVision AREDS) calcium phosphate,dibasic 77 1 tab PO 10/06/21 10/08/21 mg-vitamin D3 400 unit tablet ibuprofen 600 mg tablet 600 mg PO TID PRN pain #30 tabs 10/06/21 10/08/21 tramadol 50 mg tablet 50 mg PO Q4H PRN severe 10/06/21 10/08/21 postoperative pain #5 tabs nystatin 100,000 unit/gram topical 1 applic topical TID Fungal 10/08/21 10/08/21 powder infection #60 grams Previous Rx's Medication Instructions Recorded cyclobenzaprine 5 mg tablet 5 mg PO TID PRN muscle spasm #10 04/15/19 tabs ibuprofen 600 mg tablet 600 mg PO TID PRN pain #30 tabs 10/06/21 tramadol 50 mg tablet 50 mg PO Q4H PRN severe 10/06/21 postoperative pain #5 tabs nystatin 100,000 unit/gram topical 1 applic topical TID Fungal 10/08/21 powder infection #60 grams Allergies Allergy/AdvReac Type Severity Reaction Status Date / Time acetaminophen Allergy Severe Other (See Verified 10/08/21 18:30 [From Darvocet-N] Comment) codeine Allergy Severe Throat Verified 10/08/21 18:30 Swells/Can't breath latex Allergy Severe Skin Rash Verified 10/08/21 18:30 oxycodone [Oxycodone] Allergy Severe CONVULSION Verified 10/08/21 18:30 propoxyphene napsylate Allergy Severe Other (See Verified 10/08/21 18:30 [From Darvocet-N] Comment) venom-honey bee Allergy Severe HIVES Verified 10/08/21 18:30 hydrocodone bitartrate Allergy Intermediate rash,swelli Verified 10/08/21 18:30 [From Vicodin] ng,SOB varenicline tartrate Allergy Mild Other (See Verified 10/08/21 18:30 [From Chantix] Comment) simvastatin AdvReac Mild NAUSEA Verified 10/08/21 18:30 WELLBUUTRIN Allergy Mild Nausea Uncoded 10/08/21 18:30 General Stated Complaint: Orthopedic CLAIRE: 4 Review of Systems Constitutional Constitutional: Denies fever(s) Cardiovascular Cardiovascular: Denies chest pain and Denies dyspnea Respiratory Respiratory: Denies dyspnea Musculoskeletal Musculoskeletal: Denies arthralgias, Denies numbness and Denies tingling Integumentary/Breasts Skin/Breast: Denies erythema Neurologic Neurologic: Denies numbness and Denies tingling PFSH All Active Problems (Updated 10/08/21 @ 09:17 by Amberly Coleman) Ecchymosis (Acute) Bleeding diathesis (Acute 01/22/13) Essential hypertension (Acute 12/08/12) COPD (chronic obstructive pulmonary disease) (Chronic) Skin cyst (Acute) Yeast dermatitis (Acute) Von Willebrand disease (Acute) Cyst of joint of right hand (Acute) s/p excision of ganglion cyst DOS: 10/06/21 Medical History Acute whiplash injury Anal fissure Ankle fracture, right Anorexia nervosa (11/26/08) Anxiety Atypical nevus of multiple sites (01/22/15) seborrheic keratoses Breast pain, right Bulimia nervosa (11/26/08) Depressive disorder Eczema Hair thinning (01/22/15) History of cervical cancer (02/25/17) IBS (irritable bowel syndrome) Keratosis, seborrheic (02/25/17) Macular degeneration Migraine Neck pain Neoplasm of unspecified nature of bone, soft tissue, and skin (10/06/15) Osteoporosis Rectal bleeding (09/19/13) Rosacea (01/22/15) Sciatica Surgical History Appendectomy Pt. denies this states she still has it History of open reduction and internal fixation (ORIF) procedure r ankle Tonsillectomy Family History Mother Personal history of malignant neoplasm Lung Father Essential hypertension Diabetes Personal history of malignant neoplasm Heart disease Sister Personal history of malignant neoplasm Brother Essential hypertension Diabetes Heart disease Grandfather Personal history of malignant neoplasm Grandfather No problems noted. Grandmother No problems noted. Grandmother No problems noted. Other Stroke Social History Smoking/Tobacco Use Status: Current every day Tobacco Type: cigarettes Smoking risk assessment performed?: Yes Alcohol Intake: current Alcohol Intake frequency: holidays/special occasions only Drug use: Current Sobriety Substance use type: does not use Details: alcohol: in january. Marijuana: about two years ago Do you feel safe at home: Yes Do you feel safe in your relationship?: Yes Exam Const General: cooperative, healthy appearing, comfortable and no acute distress Orientation: alert and awake [facility] Head: normal to inspection, normocephalic and atraumatic Eyes Conjunctivae: conjunctivae normal Neck Neck: normal visual inspection, trachea midline and supple Resp Effort & Inspection: normal respiratory effort and able to speak in complete sentences Cardio Rate: regular rate Rhythm: regular rhythm Skin General skin exam: no rashes or lesions noted Neuro General: patient alert, patient awake, moves all extremities and no focal motor deficits Cognition: normal cognition Speech: speech normal Gait: normal gait Motor: muscle tone normal throughout Sensory Exam: no sensory deficits noted Extrem General: full ROM and capillary refill normal Hand/finger images: 1. Well-healing surgical incision, no active bleeding or signs of infection. 2. Diffuse mild swelling and ecchymosis. Skin is intact. Normal capillary refill. 5 out of 5 strength. Neuro, vascular, tendon intact. Normal radial pulse as well. There is no warmth, erythema, tenderness. No signs of secondary infection. Psych Appearance: grossly normal Mental Status: mental status grossly normal Course Vital Signs Vital signs: Vital Signs Temperature 37.1 C 10/08/21 18:25 Pulse 94 H 10/08/21 18:25 Respiratory Rate 14 10/08/21 18:25 Blood Pressure 151/63 H 10/08/21 18:25 Pulse Oximetry 94 10/08/21 18:25 Temperature 37.1 C 10/08/21 18:25 Temperature Source Temporal Artery Scan 10/08/21 18:25 Pulse 94 H 10/08/21 18:25 Respiratory Rate 14 10/08/21 18:25 Respiratory Effort Non-Labored 10/08/21 18:30 Blood Pressure 151/63 H 10/08/21 18:25 Blood Pressure Position Supine 10/08/21 18:25 Pulse Oximetry 94 10/08/21 18:25 Oxygen Delivery Method Room Air 10/08/21 18:25 Oxygen Flow Rate 0 10/08/21 18:25 Pain Level 3 10/08/21 18:25
== END 2021-10-08 19:08 | disposition home or self-care (01) ==
PROVIDERS: Emergency Provider Physician Assistant; PCP Family Medicine
DX: S60.221A Contusion of right hand, initial encounter (principal); L81.9 Disorder of pigmentation, unspecified; F17.210 Nicotine dependence, cigarettes, uncomplicated; X58.XXXA Exposure to other specified factors, initial encounter
CPT/HCPCS: 99281; 99282

== ENCOUNTER 2021-11-09 14:41 | Emergency (ER) | payer OTHER, SELFPAY ==
--- NOTE | 2021-11-09 15:00 | DI.US_ITS ---
Exam(s) US LOWER EXTREMITY VENOUS LT EXAM: US LOWER EXTREMITY VENOUS LT CLINICAL HISTORY: left lateral calf swelling, r/o dvt TECHNIQUE: Left lower extremity venous ultrasound performed using grayscale, color-flow, and spectra l Doppler analysis. COMPARISON: No exams were available for comparison FINDINGS: The left common femoral, femoral and popliteal veins demonstrate normal compressibility, augmentation , and color Doppler. The posterior tibial veins are patent. The saphenofemoral junction is unremarka ble. There is no evidence of a Dobson cyst. The soft tissues are unremarkable. IMPRESSION: 1. No evidence of a left lower extremity DVT. 2. Results of this exam have been verbally communicated with provider. DATA REPOSITORY:
[2021-11-09 15:04] VITALS: BP 166/66; PULSE 96; RESP 17; TEMP 36.1; O2SAT 95
[2021-11-09 15:07] VITALS: RESP 17
--- NOTE | 2021-11-09 15:35 | W.ED.GENAD ---
Discharge Plan Disposition Patient Disposition: HOME Condition: Good Discharge Details Clinical Impression: Left leg swelling Primary Care Provider: Ashanti Pradhan ED Provider: Dominic Ngo Home Meds and New Rx's Prescriptions: New cephalexin 500 mg capsule 500 mg PO QID 7 Days Qty: 28 0RF No Action nystatin 100,000 unit/gram powder 1 applic topical TID Qty: 60 0RF epinephrine [EpiPen 2-Luis M] 0.3 MG/0.3 ML auto-injector 0.3 mg IM ONCE Qty: 1 Label Comments: Pt. has never had to use her Epi-Pen. fluticasone propionate [Flovent HFA] 12 GM HFA aerosol inhaler 220 mcg Inhalation BID PRNQty: 2 ProAir RespiClick 90 MCG aerosol powdr breath activated 90 mcg Inhalation Q4H PRN desonide 15 GM cream 15 g Topical BID fluocinolone 15 GM cream 15 g Topical DAILY buspirone 7.5 MG tablet 7.5 mg PO BID gabapentin 100 mg capsule 100 mg PO DAILY PRN budesonide-formoterol 160-4.5 mcg/actuation HFA aerosol inhaler 2 puff inhalation BID alendronate 70 mg tablet 70 mg PO QWEEK sulfacetamide sodium (acne) 10 % suspension 1 applic topical ONCE nystatin 100,000 unit/gram cream 1 applic topical BID clobetasol 0.05 % ointment 1 applic topical DAILY Psyllium [Metamucil] 1 EACH Pkt 1 ea PO PRN PRN PreserVision AREDS [id number] Capsule 1 cap PO DAILY calcium phos,dibas-vitamin D3 77-400 mg-unit Tablet 1 tab PO Label Comments: pt. reports it is a 500 mg ibuprofen 600 mg tablet 600 mg PO TID PRN (Reason: pain) Qty: 30 3RF cyclobenzaprine 5 mg tablet 5 mg PO TID PRN (Reason: muscle spasm) Qty: 10 0RF Discharge Instructions Instructions: Hematoma (ED) Additional Instructions: At this time your ultrasound shows no evidence of blood clot or DVT. I suspect you have a small hematoma in the superficial layers of your skin that causes swelling. Please gently wrap the area with an Carlos wrap. Keep it elevated as often as possible. Take Tylenol as needed for pain. Although there is no evidence of infection now, sometimes this can develop into a mild infection. If you notice redness and warmth and worsening of the swelling, please take the antibiotic as directed. Otherwise I would hold off on any antibiotic for the time being. Please have your leg rechecked by your family doctor in the next 5 days to note change or improvement. If you notice any worsening of your symptoms, or any new symptoms such as vomiting, diarrhea, fever, chills, shortness of breath, chest pain, numbness, weakness, or fainting , please return immediately to the emergency department for reevaluation. Please follow up with your primary care provider as soon as possible for reassessment and reevaluation. As always, it was a pleasure participating in your medical care today. Referrals: Ashanti Pradhan [Primary Care Provider] - Discharge Data Discharge Date/Time-TO BE ENTERED AT DEPARTURE: 11/09/21 17:12 Medical Decision Making This is a very pleasant 71-year-old female with a past medical history of COPD, hypertension, von Willebrand's disease, who presents today for evaluation of left leg pain. Patient states that yesterday she developed some itchiness and warmth over her left lateral calf, and then developed some mild swelling. That has continued today. She does not take any blood thinners. She denies any trauma. She denies hearing any pops with movement. She denies any recent long trips, surgeries, or procedures. She denies having had blood clots before. She denies any other complaints at this time. No other modifying factors. She denies bleeding in the gums, or any new joint pain. Additionally of note, the patient did suffer a notable injury to her left sandoval and ankle and heel 40 years ago, at which point she states that she developed multiple muscle and tendon injuries which is led to slight chronic weakness of the left lower extremity. Physical exam demonstrates a small amount of swelling on the left lateral calf, no redness to suggest infection, no warmth to suggest infection. Minimal questionable bruising. No distal abnormality in the ankle or foot. No pretibial pitting edema. The left calf is slightly enlarged compared to the right, but I suspect this is secondary to the mild bruising. Clinically I suspect a mild hematoma may have occurred in that area after an unbeknownst mild trauma. I suspect this is causing the swelling, and the blood causng initial itching and warmth. Doubt deep blood clot, however out of an abundance of precaution we will get a screening ultrasound to rule out DVT. In the meantime will recommend Tylenol, ice, and close monitoring. Symptoms at this time appear inconsistent with cellulitis. 11:46 PM Ultrasound is negative for any evidence of DVT. Suspect small hematoma and no clot. No evidence of cellulitis. Will discharge home and recommend Carlos wrap, Tylenol, and ice. We will give a prescription for an antibiotic, but this is only as a precaution. I have discussed it with the patient that she is only to take the antibiotic if the redness and warmth develops. Family understands this. Discussed red flags which to return. I have extensively reviewed the treatment plan and discharge instructions with the patient and their family. I have addressed all patient concerns at this time. The patient and family was made aware of what symptoms to monitor for that would warrant a return to the emergency department. Discussed the plan with the patient and family, they demonstrate verbal understanding and agreement with our assessment and plan at this time. The documentation in this chart was dictated using [employer] dictation software. Please excuse any dictation errors. FINDINGS: The left common femoral, femoral and popliteal veins demonstrate normal compressibility, augmentation, and color Doppler. The posterior tibial veins are patent. The saphenofemoral junction is unremarkable. There is no evidence of a Dobson cyst. The soft tissues are unremarkable. IMPRESSION: 1. No evidence of a left lower extremity DVT. 2. Results of this exam have been verbally communicated with provider. DATA REPOSITORY: [facility] General Date/Time Provider Initiated Documentation: 11/09/21 15:06. [facility] Narrative: This is a very pleasant 71-year-old female with a past medical history of COPD, hypertension, von Willebrand's disease, who presents today for evaluation of left leg pain. Patient states that yesterday she developed some itchiness and warmth over her left lateral calf, and then developed some mild swelling. That has continued today. She does not take any blood thinners. She denies any trauma. She denies hearing any pops with movement. She denies any recent long trips, surgeries, or procedures. She denies having had blood clots before. She denies any other complaints at this time. No other modifying factors. She denies bleeding in the gums, or any new joint pain. Additionally of note, the patient did suffer a notable injury to her left sandoval and ankle and heel 40 years ago, at which point she states that she developed multiple muscle and tendon injuries which is led to slight chronic weakness of the left lower extremity. Related Data Home Medications Medication Instructions Recorded Confirmed Psyllium [Metamucil] 1 ea PO PRN PRN 05/07/14 10/15/21 epinephrine 0.3 mg/0.3 mL 0.3 mg IM ONCE #1 pen 07/03/15 11/09/21 injection, auto-injector (EpiPen 2-Luis M) fluticasone propionate 220 220 mcg inhalation BID PRN ##2 01/26/16 11/09/21 mcg/actuation HFA aerosol inhaler (Flovent HFA) albuterol sulfate 90 mcg/actuation 90 mcg inhalation Q4H PRN 05/30/17 11/09/21 breath activated powder inhaler (ProAir RespiClick) buspirone 7.5 mg tablet 7.5 mg PO BID 05/30/17 11/09/21 desonide 0.05 % topical cream 15 g topical BID 05/30/17 11/09/21 fluocinolone 0.01 % topical cream 15 g topical DAILY 05/30/17 11/09/21 cyclobenzaprine 5 mg tablet 5 mg PO TID PRN muscle spasm #10 04/15/19 11/09/21 tabs alendronate 70 mg tablet 70 mg PO QWEEK 08/17/21 11/09/21 budesonide-formoterol HFA 160 2 puff inhalation BID 08/17/21 11/09/21 mcg-4.5 mcg/actuation aerosol inhaler gabapentin 100 mg capsule 100 mg PO DAILY PRN 08/17/21 11/09/21 clobetasol 0.05 % topical ointment 1 applic topical DAILY 09/08/21 11/09/21 nystatin 100,000 unit/gram topical 1 applic topical BID 09/08/21 11/09/21 cream sulfacetamide sodium (acne) 10 % 1 applic topical ONCE 09/08/21 11/09/21 lotion (suspension) vitamins A,C,B-yugu-dkxuqo 14,320 1 cap PO DAILY 10/05/21 11/09/21 unit-226 mg-200 unit capsule (PreserVision AREDS) calcium phosphate,dibasic 77 1 tab PO 10/06/21 10/15/21 mg-vitamin D3 400 unit tablet ibuprofen 600 mg tablet 600 mg PO TID PRN pain #30 tabs 10/06/21 11/09/21 nystatin 100,000 unit/gram topical 1 applic topical TID Fungal 10/08/21 11/09/21 powder infection #60 grams cephalexin 500 mg capsule 500 mg PO QID 7 days #28 caps 11/09/21 Previous Rx's Medication Instructions Recorded cyclobenzaprine 5 mg tablet 5 mg PO TID PRN muscle spasm #10 04/15/19 tabs ibuprofen 600 mg tablet 600 mg PO TID PRN pain #30 tabs 10/06/21 nystatin 100,000 unit/gram topical 1 applic topical TID Fungal 10/08/21 powder infection #60 grams cephalexin 500 mg capsule 500 mg PO QID 7 days #28 caps 11/09/21 Allergies Allergy/AdvReac Type Severity Reaction Status Date / Time acetaminophen Allergy Severe Other (See Verified 11/09/21 15:11 [From Darvocet-N] Comment) codeine Allergy Severe Throat Verified 11/09/21 15:11 Swells/Can't breath latex Allergy Severe Skin Rash Verified 11/09/21 15:11 oxycodone [Oxycodone] Allergy Severe CONVULSION Verified 11/09/21 15:11 propoxyphene napsylate Allergy Severe Other (See Verified 11/09/21 15:11 [From Darvocet-N] Comment) venom-honey bee Allergy Severe HIVES Verified 11/09/21 15:11 hydrocodone bitartrate Allergy Intermediate rash,swelli Verified 11/09/21 15:11 [From Vicodin] ng,SOB varenicline tartrate Allergy Mild Other (See Verified 11/09/21 15:11 [From Chantix] Comment) simvastatin AdvReac Mild NAUSEA Verified 11/09/21 15:11 WELLBUUTRIN Allergy Mild Nausea Uncoded 11/09/21 15:11 General Stated Complaint: Vascular CLAIRE: 3 Review of Systems All systems reviewed & are unremarkable except as noted in HPI and below PFSH All Active Problems Left leg swelling (Acute) Bleeding diathesis (Acute 01/22/13) Essential hypertension (Acute 12/08/12) COPD (chronic obstructive pulmonary disease) (Chronic) Skin cyst (Acute) Yeast dermatitis (Acute) Von Willebrand disease (Acute) Cyst of joint of right hand (Acute) s/p excision of ganglion cyst DOS: 10/06/21 Medical History Acute whiplash injury Anal fissure Ankle fracture, right Anorexia nervosa (11/26/08) Anxiety Atypical nevus of multiple sites (01/22/15) seborrheic keratoses Breast pain, right Bulimia nervosa (11/26/08) Depressive disorder Eczema Hair thinning (01/22/15) History of cervical cancer (02/25/17) IBS (irritable bowel syndrome) Keratosis, seborrheic (02/25/17) Macular degeneration Migraine Neck pain Neoplasm of unspecified nature of bone, soft tissue, and skin (10/06/15) Osteoporosis Rectal bleeding (09/19/13) Rosacea (01/22/15) Sciatica Surgical History Appendectomy Pt. denies this states she still has it History of open reduction and internal fixation (ORIF) procedure r ankle Tonsillectomy Family History Mother Personal history of malignant neoplasm Lung Father Essential hypertension Diabetes Personal history of malignant neoplasm Heart disease Sister Personal history of malignant neoplasm Brother Essential hypertension Diabetes Heart disease Grandfather Personal history of malignant neoplasm Grandfather No problems noted. Grandmother No problems noted. Grandmother No problems noted. Other Stroke Social History Smoking/Tobacco Use Status: Current every day Tobacco Type: cigarettes Smoking risk assessment performed?: Yes Alcohol Intake: current Alcohol Intake frequency: holidays/special occasions only Drug use: Current Sobriety Substance use type: does not use Details: alcohol: in january. Marijuana: about two years ago Do you feel safe at home: Yes Do you feel safe in your relationship?: Yes Exam Narrative Exam Narrative: 1.Const: Well-nourished, Well-developed, appearing stated age 2.Eyes: PERRL, no conjunctival injection, and symmetrical lids. 3.ENT: Atraumatic external nose and ears. Moist MM. Neck: Symmetric, trachea midline, No thyromegaly. 4.CVS: +S1/S2, No murmurs or gallops. Peripheral pulses 2+ and equal in all extremities. Brisk capillary refill in all extremities. 5.RESP: Unlabored respiratory effort. Clear to auscultation bilaterally. No wheezes rales or rhonchi 6.GI: Soft, Nontender/Nondistended, No hepatosplenomegaly. No guarding or rebound. 7.MSK: Normocephalic/Atraumatic, Extremities w/o deformity. Patient's left calf demonstrates minimal swelling on just the lateral aspect in comparison to the right calf. No significant warmth. Questionable mild bruising there, but no redness. No suggestion of cellulitis. Distal exam demonstrates no pitting edema, no edema of the ankle or foot. No other abnormalities. No posterior popliteal tenderness. Patient demonstrates normal strength for flexion and extension at the knee, inversion and eversion of the foot, but does demonstrate minimal weakness in the lateral eversion for the left foot in comparison to the right, which the patient attributes to her chronic injury that happened over 40 years ago. No pretibial pitting edema. 8.Skin: Warm, Dry. No rashes or lesions. Please see musculoskeletal 9.Neuro: programming internship II-XII grossly intact. Sensation grossly intact, no focal neurologic deficits. 10.Psych: (AAO) x3. Appropriate mood and affect Course Vital Signs Vital signs: Vital Signs Temperature 36.1 C L 11/09/21 15:04 Pulse 96 H 11/09/21 15:04 Respiratory Rate 17 11/09/21 15:04 Blood Pressure 166/66 H 11/09/21 15:04 Pulse Oximetry 95 11/09/21 15:04 Temperature 36.1 C L 11/09/21 15:04 Temperature Source Temporal Artery Scan 11/09/21 15:04 Pulse 96 H 11/09/21 15:04 Respiratory Rate 17 11/09/21 15:07 Respiratory Effort Non-Labored 11/09/21 15:15 Respiratory Depth Normal 11/09/21 15:15 Respiratory Pattern Normal 11/09/21 15:15 Blood Pressure 166/66 H 11/09/21 15:04 Blood Pressure Position Sitting 11/09/21 15:04 Pulse Oximetry 95 11/09/21 15:04 Oxygen Delivery Method Room Air 11/09/21 15:04 Oxygen Flow Rate 0 11/09/21 15:04 Pain Level 6 11/09/21 15:07 PAWSS Have you Been Recently Intoxicated or Drunk Within the Last 30 days?: No Have you Ever Experienced Previous Episodes of Alcohol Withdrawal?: No Have you ever Experienced Withdrawal Seizures?: No Have you ever Experienced Delirium Tremens(DT)s?: No Have you ever undergone Alcohol Rehabilitation Treatment (i.e, inpt ot outpatient treatment programs)?: No Have you ever Experienced Blackouts?: No Have you ever Combined Alcohol with other Downers within the last 90 days?: No Have you ever Combined Alcohol with any other Substance of Abuse during the last 90 days?: No Positive Blood Alcohol level on Presentation? [PCS.BAL]: No Evidence of Increased Autonomic Activity (i.e. HR>120, tremor, sweating, agitation, nausea)?: No Result: 0
[2021-11-09 16:35] VITALS: RESP 17
== END 2021-11-09 17:12 | disposition home or self-care (01) ==
PROVIDERS: Emergency Provider Student in an Organized Health Care Education/Training Program; PCP Family Medicine
DX: M79.89 Other specified soft tissue disorders (principal); I10 Essential (primary) hypertension; J44.9 Chronic obstructive pulmonary disease, unspecified; F17.210 Nicotine dependence, cigarettes, uncomplicated; Z79.51 Long term (current) use of inhaled steroids
CPT/HCPCS: 99284; 93971

== ENCOUNTER 2022-05-25 01:33 | Outpatient (CLI) | payer OTHER, SELFPAY ==
--- NOTE | 2022-05-25 | DI.MAMMO_ITS ---
Exam(s) MAMMO SCREENING EXAM: MAMMO SCREENING CLINICAL HISTORY: SCREENING MAMMO FOR BREAST CANCER Z12.31 TECHNIQUE: Mammograms were interpreted according to the usual protocol including computer analysis w [employer] CAD system, tomosynthesis and C-view imaging. COMPARISON: 2012 through 2018 FINDINGS: The breasts are composed of mainly fatty density , Breast Density category A. No suspicious masses or suspicious microcalcifications are seen. No skin thickening or abnormal axillary lymph nodes are seen. There has been no significant change from prior exams. IMPRESSION: BI-RADS Category 1, Negative mammogram Yearly screening mammography is recommended. Breast Density - Category A, fatty density. A negative radiographic report should not delay biopsy if a dominant or clinically suspicious mass is present. Up to ten percent of cancers are not identified on mammography. A negative report may reinforce clinical impression. Adenosis and dense breasts may obscure an underlying neoplasm. False positive reports average 6 to 10%. Patient will receive a letter notifying them of these results.
== END 2022-05-25 01:53 ==
LOC: DI 01:33
PROVIDERS: PCP Family Medicine; Visit Provider Family Medicine
DX: Z12.31 Encounter for screening mammogram for malignant neoplasm of breast (principal)
CPT/HCPCS: 77063; 77067

== ENCOUNTER 2022-05-26 14:22 | Outpatient (REF) | payer OTHER, SELFPAY ==
[2022-05-26 15:56] LABS: ALT 19 U/L (14-59); AST 16 U/L (15-37); Albumin 3.9 g/dL (3.4-5.0); Alkaline Phosphatase 126 U/L (46-116); Anion Gap 7.9 mmol/L (3-11); BUN 16 mg/dL (7-18); Bilirubin, Total 0.3 mg/dL (0.2-1.0); CO2 30.1 mmol/L (21.0-32.0); CREATININE 0.8 mg/dL (0.55-1.02); Calcium 9.3 mg/dL (8.5-10.1); Calculated LDL 226 mg/dL (<100); Chloride 104 mmol/L (98-107); Cholesterol 295 mg/dL (<200); Estimated GFR 78.72 (mL/min/1.73m2); Glucose 103 mg/dL (74-106); HDL Cholesterol 53 mg/dL (40-60); Potassium 4.4 mmol/L (3.5-5.1); Sodium 142 mmol/L (136-145); Total Protein 7.2 g/dL (6.4-8.2); Triglyceride 84 mg/dL (<150)
[2022-05-26 16:01] LABS: Vitamin D 25 Total 5.5 ng/mL (30-100)
== END 2022-05-26 14:23 | disposition home or self-care (01) ==
LOC: NCHCN 14:22
PROVIDERS: PCP Family Medicine; Visit Provider Family Medicine
DX: Z00.00 Encounter for general adult medical examination without abnormal findings (principal); E78.5 Hyperlipidemia, unspecified; I10 Essential (primary) hypertension; E55.9 Vitamin D deficiency, unspecified
CPT/HCPCS: 80053; 80061; 82306

== ENCOUNTER 2022-06-04 11:00 | Outpatient (REF) | payer OTHER, SELFPAY ==
--- NOTE | 2022-06-04 09:15 | SKI_PTH ---
PATIENT: Melanie Kaye LOC: [facility]#:[id number] AGE/SX: 71/F ROOM: RE06/04/[address]: Nila Mantilla : 1950 BED: DIS: 06/04/2022 SPEC #: [id number] RECD: 06/07/22 12:04 STATUS: SHILPA REPhong #: [id number] JACKIE: 06/04/22 09:[address]: Nila Mantilla DEPT: Surgical Specimen RECD BY: Mary Mendoza ENTERED: 06/07/22 12:07 SP TYPE: DORA JAVED DR: Ashanti Pradhan Tissues: 1 - SKIN BIOPSY(SHAVE/PUNCH) Procedures: SKIN LEVEL 4 Comments: [id number]
== END 2022-06-04 11:01 | disposition home or self-care (01) ==
LOC: NCHCN 11:00
PROVIDERS: PCP Family Medicine; Visit Provider Family Medicine
DX: D48.5 Neoplasm of uncertain behavior of skin (principal)
CPT/HCPCS: 88305

== ENCOUNTER 2023-03-21 20:34 | Emergency (ER) | payer BC, SELFPAY ==
[2023-03-21 20:51] VITALS: BP 157/58; PULSE 83; RESP 16; TEMP 36.4; O2SAT 97
--- NOTE | 2023-03-21 21:00 | DI.RAD_ITS ---
Exam(s) XR SHOULDER LT COMPLETE 2+V EXAM: XR SHOULDER LT COMPLETE 2+V CLINICAL HISTORY: L shoulder pain. TECHNIQUE: 2D digital imaging was performed. COMPARISON: No exams were available for comparison FINDINGS: 3 views There is nondisplaced vertical fracture of the greater tuberosity. There is also a mildly impacted f racture of the neck of the humerus. There is subtle irregularity at the inferior rim of the osseous glenoid. Cannot exclude small fracture fragment at this level. No dislocation. Coracoid process appears intact. Subacromial space is not diminished. AC joint int act. No abnormal soft tissue calcifications seen. No adjacent rib fractures. IMPRESSION: Fractures of the humeral neck and greater tuberosity as described above. Cannot exclude small fractu re of the inferior glenoid rim. DATA REPOSITORY: RADIATION DOSE DELIVERED:
--- NOTE | 2023-03-21 22:30 | DI.CT_ITS ---
Exam(s) CT UPPER EXTREMITY LT WO EXAM: CT UPPER EXTREMITY LT WO CLINICAL HISTORY: humerus greater tuberosity fx, ? inferior glenoid TECHNIQUE: Imaging Protocol: Axial computed tomography images with coronal and sagittal reformatted images were created and reviewed. CONTRAST MATERIAL: Intravenous: Omnipaque 350 Contrast volume:structured data in ml Contrast route:I V - Oral: yes / no COMPARISON: CR,XR XR SHOULDER LT COMPLETE 2+V from 03/21/2023 FINDINGS: There is a nondisplaced fracture of the greater tuberosity, similar to what is seen on the proceeding plain films. There is also minimally impacted nondisplaced transverse fracture in the metaphysis-hu meral neck region. With respect to the osseous glenoid, there is no evidence of [place] of the glenoid rim. Coracoid process is intact. No adjacent rib fractures evident. IMPRESSION: Acute fractures of the proximal humerus as described above, including a mildly impacted transverse fr acture of the metaphysis and a nondisplaced vertical longitudinal fracture of the greater tuberosity. No evidence of fracture of the glenoid fossa. Moderate size hemarthrosis noted. RADIATION DOSE DELIVERED: 1,210.47mGy.cm Total DLP DATA REPOSITORY: All CT scans at this facility are submitted to the National Radiology Data Registry (NRDR) Dose Index Registry (DIR) with the [employer] (ACR). RADIATION OPTIMIZATION: All CT scans at this facility use at least one of these dose optimization te chniques: automated exposure control; mA and/or kV adjustment per patient size (includes targeted exa ms where dose is matched to clinical indication); or iterative reconstruction.
--- NOTE | 2023-03-21 22:30 | DI.VRAD_ITS ---
PROCEDURE INFORMATION: Exam: XR Left Shoulder Exam date and time: 03/21/2023 9:31 PM Age: 72 years old Clinical indication: Injury or trauma; Fall; Blunt trauma (contusions or hematomas); Shoulder; Left; Injury date: 03/21/23; Injury details: PT fell and heard a pop, unable to move arm TECHNIQUE: Imaging protocol: Radiologic exam of the left shoulder. Views: 2 or more views. COMPARISON: CT HEAD CERVICAL SPINE WO 04/15/2019 11:37 AM FINDINGS: Bones/joints: Osteopenia. Acute nondisplaced fracture of the greater tuberosity. Mild calcific density at the inferior glenoid margin may represent osteoarthritic spurring. This is only questionably demonstrated on comparison old chest x-rays. It is difficult to exclude minimally displaced inferior glenoid fracture, consider CT as clinically indicated for greater specificity. Visualized left ribs appear intact. Left clavicle intact. AC joint alignment normal. Soft tissues: No gross soft tissue abnormalities. IMPRESSION: 1. Nondisplaced fracture of the greater tuberosity of the proximal left humerus. 2. Calcification at the inferior glenoid margin probably represents mild osteoarthritic spurring although CT could better exclude inferior glenoid fracture if clinically indicated. Dictated and Authenticated by: Cisco Fountain MD. Ordering:SMOOTH Alfaro MD
--- NOTE | 2023-03-21 22:51 | ED.GENADUL_ITS ---
HPI General Stated Complaint: Orthopedic Mode of arrival: ambulatory. CLAIRE: 3 Date/Time Provider Initiated Documentation: 03/21/23 21:02. Limitations to Documentation: no limitations. Information obtained by: patient and family. HPI Narrative: 72yo F with HTN, COPD, VWD presenting for left shoulder pain after fall. Was leaning down to put on pants, fell over, and landed on her left shoulder. Severe left shoulder pain, worse with movement, radiating down her left arm. No numbness or tingling anywhere No pain elsewhere. Did not strike her head. She is otherwise in her usual state of health with no fevers, chills, rash, nausea, vomiting, chest pain, shortness of breath, abdominal pain, or other concerns. Related Data Home Medications Medication Instructions Recorded Confirmed epinephrine 0.3 mg/0.3 mL 0.3 mg IM ONCE #1 pen 07/03/15 03/21/23 injection, auto-injector (EpiPen 2-Luis M) fluticasone propionate 220 220 mcg inhalation BID PRN ##2 01/26/16 03/21/23 mcg/actuation HFA aerosol inhaler (Flovent HFA) albuterol sulfate 90 mcg/actuation 90 mcg inhalation Q4H PRN 05/30/17 03/21/23 breath activated powder inhaler (ProAir RespiClick) buspirone 7.5 mg tablet 7.5 mg PO BID 05/30/17 03/21/23 desonide 0.05 % topical cream 15 g topical BID 05/30/17 03/21/23 fluocinolone 0.01 % topical cream 15 g topical DAILY 05/30/17 03/21/23 alendronate 70 mg tablet 70 mg PO QWEEK 08/17/21 03/21/23 budesonide-formoterol HFA 160 2 puff inhalation BID 08/17/21 03/21/23 mcg-4.5 mcg/actuation aerosol inhaler clobetasol 0.05 % topical ointment 1 applic topical DAILY 09/08/21 03/21/23 nystatin 100,000 unit/gram topical 1 applic topical BID 09/08/21 03/21/23 cream sulfacetamide sodium (acne) 10 % 1 applic topical ONCE 09/08/21 03/21/23 lotion (suspension) calcium phosphate,dibasic 77 1 tab PO DAILY 10/06/21 03/21/23 mg-vitamin D3 400 unit tablet ibuprofen 600 mg tablet 600 mg PO TID PRN pain #30 tabs 10/06/21 03/21/23 nystatin 100,000 unit/gram topical 1 applic topical TID Fungal 10/08/21 11/09/21 powder infection #60 grams morphine 15 mg tablet,extended 15 mg PO Q8H PRN Pain #10 tabs 03/22/23 release ondansetron 4 mg disintegrating 4 mg PO Q8H PRN #10 tabs 03/22/23 tablet Previous Rx's Medication Instructions Recorded ibuprofen 600 mg tablet 600 mg PO TID PRN pain #30 tabs 10/06/21 nystatin 100,000 unit/gram topical 1 applic topical TID Fungal 10/08/21 powder infection #60 grams morphine 15 mg tablet,extended 15 mg PO Q8H PRN Pain #10 tabs 03/22/23 release ondansetron 4 mg disintegrating 4 mg PO Q8H PRN #10 tabs 03/22/23 tablet Allergies Allergy/AdvReac Type Severity Reaction Status Date / Time acetaminophen Allergy Severe Other (See Verified 03/21/23 20:58 [From Darvocet-N] Comment) codeine Allergy Severe Throat Verified 03/21/23 20:58 Swells/Can't breath latex Allergy Severe Skin Rash Verified 03/21/23 20:58 oxycodone [Oxycodone] Allergy Severe CONVULSION Verified 03/21/23 20:58 propoxyphene napsylate Allergy Severe Other (See Verified 03/21/23 20:58 [From Darvocet-N] Comment) venom-honey bee Allergy Severe HIVES Verified 03/21/23 20:58 hydrocodone bitartrate Allergy Intermediate rash,swelli Verified 03/21/23 20:58 [From Vicodin] ng,SOB varenicline tartrate Allergy Mild Other (See Verified 03/21/23 20:58 [From Chantix] Comment) simvastatin AdvReac Mild NAUSEA Verified 03/21/23 20:58 WELLBUUTRIN Allergy Mild Nausea Uncoded 03/21/23 20:58 Review of Systems Narrative: see HPI PFSH All Active Problems Fracture of proximal end of humerus (Acute) Bleeding diathesis (Acute 01/22/13) Essential hypertension (Acute 12/08/12) COPD (chronic obstructive pulmonary disease) (Chronic) Skin cyst (Acute) Yeast dermatitis (Acute) Von Willebrand disease (Acute) Cyst of joint of right hand (Acute) s/p excision of ganglion cyst DOS: 10/06/21 Medical History Acute whiplash injury Anal fissure Ankle fracture, right Anorexia nervosa (11/26/08) Anxiety Atypical nevus of multiple sites (01/22/15) seborrheic keratoses Breast pain, right Bulimia nervosa (11/26/08) Depressive disorder Eczema Hair thinning (01/22/15) History of cervical cancer (02/25/17) IBS (irritable bowel syndrome) Keratosis, seborrheic (02/25/17) Macular degeneration Migraine Neck pain Neoplasm of unspecified nature of bone, soft tissue, and skin (10/06/15) Osteoporosis Rectal bleeding (09/19/13) Rosacea (01/22/15) Sciatica Surgical History Appendectomy Pt. denies this states she still has it History of open reduction and internal fixation (ORIF) procedure r ankle Tonsillectomy Family History Mother Personal history of malignant neoplasm Lung Father Essential hypertension Diabetes Personal history of malignant neoplasm Heart disease Sister Personal history of malignant neoplasm Brother Essential hypertension Diabetes Heart disease Grandfather Personal history of malignant neoplasm Grandfather No problems noted. Grandmother No problems noted. Grandmother No problems noted. Other Stroke Social History Smoking/Tobacco Use Status: Current every day Tobacco Type: cigarettes Smoking risk assessment performed?: Yes Alcohol Intake: current Alcohol Intake frequency: holidays/special occasions only Drug use: Current Sobriety Substance use type: does not use Details: alcohol: in january. Marijuana: about two years ago Housing: house Do you feel safe at home: Yes Do you feel safe in your relationship?: Yes Exam Narrative Exam Narrative: GENERAL: Alert, appears to be in pain SKIN: Warm and well perfused. HEAD: Atraumatic, normocephalic without edema, discoloration or evidence of trauma. EYES: PERRL. No scleral icterus or conjunctival injection. NECK: Trachea midline. No discolorations or edema. CV: Regular rate and rhythm, Normal s1 and s2. No murmurs, rubs, or gallops. PV: Radial pulses 2+ bilaterally and symmetric. 2+ capillary refill. No extremity edema. CHEST: Chest symmetric with respirations. No chest wall tenderness. Lungs are clear to auscultation bilaterally. ABDOMEN: Soft, nondistended, nontender. BACK: Spine without bony tenderness PELVIC: Pelvis stable, nontender to lateral compression MSK: No gross deformities or discolorations or lesions. Left anterior shoulder and upper arm tender to palpation. Strong symmetric radial pulses. Brisk capillary refill. Sensation intact lateral deltoid and throughout UE., symmetric with RUE. Strength testing limited 2/t pain NEURO: Alert and oriented to person, place, and time. GCS 15. Course Vital Signs Vital signs: Vital Signs Temperature 36.4 C 03/21/23 20:51 Pulse 83 03/21/23 20:51 Respiratory Rate 16 03/21/23 20:51 Blood Pressure 157/58 H 03/21/23 20:51 Pulse Oximetry 97 03/21/23 20:51 Temperature 36.4 C 03/21/23 20:51 Temperature Source Oral 03/21/23 20:51 Pulse 83 03/21/23 20:51 Respiratory Rate 16 03/21/23 20:51 Respiratory Effort Normal, Non-Labored 03/21/23 20:53 Blood Pressure 157/58 H 03/21/23 20:51 Pulse Oximetry 97 03/21/23 20:51 Pain Level 9 03/21/23 20:51 Medical Decision Making 72yo F with HTN, COPD, VWD , left handed, presenting for left shoulder pain after fall. Was leaning down to put on pants, fell over, and landed on her left shoulder. Severe left shoulder pain, worse with movement, radiating down her left arm. No numbness or tingling anywhere No pain elsewhere. Vital signs reassuring, left shoulder tender and upper arm tender on exam otherwise no traumatic findings. XR independently reviewed, no displaced fracture on my view, agree with radiology read below with nondisplaced greater tuberosity fracture. No indication of arterial injury on exam. Reassuring axillary nerve testing, sensation at lateral deltoid intact and symmetric. Initial strength testing limited 2/t pain. Pain control will be challenging; patient with bad reactions to opiates in the past and will not take here, does have VWD and will need to proceed cautiously with NSAIDS. Will give tylenol here, single dose of IM toradol. CT LUE reviewed, agree with radiology read below again with nondisplaced GT fracture as well as transverse metaphyseal fracture. On repeat strength testing patient able to easily abduct left shoulder with no subjective weakness, does have significant pain. Good resisted strength. Reassuring axill mayco nerve exam, appropriate for outpatient followup- signs of nerve injury reviewed with patient and she was instructed to return to the ED should these develop. Discussed pain control options with patient and she states she has done 'okay' with oral morphine in the past. Given dose here here and tolerated well. Placed in sling and discharged home to orthopedic followup. Discharged home; discharge instructions and return precautions were reviewed with patient who verbalized understanding. All questions were answered and she is in full agreement with the plan. Imaging Data Radiologic Study: Imaging: X-Ray Radiologist's impression: IMPRESSION: 1. Nondisplaced fracture of the greater tuberosity of the proximal left humerus. 2. Calcification at the inferior glenoid margin probably represents mild osteoarthritic spurring although CT could better exclude inferior glenoid fracture if clinically indicated. Radiologic Study #2: Imaging: CT Scan Radiologist's impression: IMPRESSION: 1. Acute proximal humeral fractures, including a transverse metaphyseal fracture with slight impaction and nondisplaced longitudinal oblique fracture in the greater tuberosity. 2. No glenoid fracture. 3. Small hemarthrosis in the left shoulder joint with mild periarticular swelling but no soft tissue hematoma. 4. Heterogeneous thyroid with bilateral nodules, largest 18 mm in the lower pole right lobe. Recommend nonemergent thyroid ultrasound assessment. Quality:SDOH Health Related Social Needs: No Data to Display Discharge Plan Disposition Patient Disposition: Home Condition: Good Discharge Details Clinical Impression: Fracture of proximal end of humerus Primary Care Provider: Ashanti Pradhan ED Provider: Malinda Harvey Home Meds and New Rx's Prescriptions: New morphine 15 mg tablet extended release 15 mg PO Q8H PRN (Reason: Pain) Qty: 10 0RF ondansetron 4 mg tablet,disintegrating 4 mg PO Q8H PRNQty: 10 0RF No Action nystatin 100,000 unit/gram powder 1 applic topical TID Qty: 60 0RF epinephrine [EpiPen 2-Luis M] 0.3 MG/0.3 ML auto-injector 0.3 mg IM ONCE Qty: 1 Patient Comments: Pt. has never had to use her Epi-Pen. fluticasone propionate [Flovent HFA] 12 GM HFA aerosol inhaler 220 mcg Inhalation BID PRNQty: 2 ProAir RespiClick 90 MCG aerosol powdr breath activated 90 mcg Inhalation Q4H PRN desonide 15 GM cream 15 g Topical BID fluocinolone 15 GM cream 15 g Topical DAILY buspirone 7.5 MG tablet 7.5 mg PO BID budesonide-formoterol 160-4.5 mcg/actuation HFA aerosol inhaler 2 puff inhalation BID alendronate 70 mg tablet 70 mg PO QWEEK sulfacetamide sodium (acne) 10 % suspension 1 applic topical ONCE nystatin 100,000 unit/gram cream 1 applic topical BID clobetasol 0.05 % ointment 1 applic topical DAILY calcium phos,dibas-vitamin D3 77-400 mg-unit Tablet 1 tab PO DAILY Patient Comments: pt. reports it is a 500 mg ibuprofen 600 mg tablet 600 mg PO TID PRN (Reason: pain) Qty: 30 3RF Discharge Instructions Instructions: Proximal Humerus Fracture (ED) Additional Instructions: Take tylenol over the counter for pain; follow the directions on the bottle. Take morphine as needed for severe pain; you can take zofran with this to help with nausea. Wear the sling you were given. You may find it most comfortable to sleep semi- upright in a recliner. You will need to followup with orthopedics; they will call you to schedule an appointment. Return to the emergency department for new or worsening symptoms including numbness/tinglingin your shoulder or arm, weakness on your arm, uncontrolled pain, or if you have any other concerns.
[2023-03-21] MEDS: Acetaminophen 500 MG TAB 1000 MG PO (22:58)
[2023-03-21] MEDS: Ketorolac 15 MG/ML VIAL IM (22:58)
[2023-03-22 00:20] VITALS: BP 185/69; PULSE 84; RESP 18; TEMP 36.6; O2SAT 93
--- NOTE | 2023-03-22 00:49 | DI.VRAD_ITS ---
PROCEDURE INFORMATION: Exam: CT Left Upper Extremity Without Contrast, Shoulder Exam date and time: 03/21/2023 11:59 PM Age: 72 years old Clinical indication: Injury or trauma; Blunt trauma (contusions or hematomas); Left; Injury date: 03/21/23; Injury details: Fall, shoulder pain. Humerus greater tuberosity FX, ? inferior glenoid TECHNIQUE: Imaging protocol: Computed tomography of the left upper extremity without contrast. Exam focused on the shoulder. Radiation optimization: All CT scans at this facility use at least one of these dose optimization techniques: automated exposure control; mA and/or kV adjustment per patient size (includes targeted exams where dose is matched to clinical indication); or iterative reconstruction. COMPARISON: CR XR SHOULDER LT COMPLETE 2+V 03/21/2023 9:31 PM FINDINGS: Bones/joints: Osteopenia. There is a transverse metaphyseal fracture of the proximal humerus with mild 3 mm impaction. There is nondisplaced longitudinal oblique fracture in the posterior aspect of the greater tuberosity. Small hemarthrosis in the left shoulder joint measuring 45 Hounsfield units distending the posterior recess. No glenoid fracture or other scapular fractures. Minor spurring and enthesopathy at the inferior glenoid margin. Left AC joint demonstrates mild osteoarthritic hypertrophic change without evidence of separation. Visualized left ribs and thoracic spine are unremarkable. Soft tissues: Mild soft tissue swelling around the shoulder joint. No hematoma. Other findings: Heterogeneous thyroid gland with 17 mm low-density nodule in the lower pole left lobe and 18 mm nodule in the right lobe lower pole. Recommend nonemergent thyroid ultrasound assessment. IMPRESSION: 1. Acute proximal humeral fractures, including a transverse metaphyseal fracture with slight impaction and nondisplaced longitudinal oblique fracture in the greater tuberosity. 2. No glenoid fracture. 3. Small hemarthrosis in the left shoulder joint with mild periarticular swelling but no soft tissue hematoma. 4. Heterogeneous thyroid with bilateral nodules, largest 18 mm in the lower pole right lobe. Recommend nonemergent thyroid ultrasound assessment. Dictated and Authenticated by: Cisco Fountain MD. Ordering:ANGIE Petty MD
[2023-03-22] MEDS: Ondansetron O.D.T. 4 MG TABEF PO (01:07)
== END 2023-03-22 01:27 | disposition home or self-care (01) ==
PROVIDERS: Emergency Provider Student in an Organized Health Care Education/Training Program; PCP Family Medicine
DX: S42.255A Nondisplaced fracture of greater tuberosity of left humerus, initial encounter for closed fracture (principal); W19.XXXA Unspecified fall, initial encounter; Y93.E9 Activity, other interior property and clothing maintenance
CPT/HCPCS: 99284; 73030; 73200; 99283; J1885

== ENCOUNTER 2023-03-24 15:15 | Outpatient (CLI) | payer BC, SELFPAY ==
--- NOTE | 2023-03-24 11:30 | DI.RAD_ITS ---
Exam(s) XR SHOULDER LT COMPLETE 2+V EXAM: XR SHOULDER LT COMPLETE 2+V CLINICAL HISTORY: F/U FRACTURE. TECHNIQUE: 2D digital imaging was performed. COMPARISON: CR,XR XR SHOULDER LT COMPLETE 2+V from 03/21/2023 FINDINGS: 3 views Subtle previously described fractures of the humeral head and neck noted, less evident on these views . Minimal impaction. No dislocation glenohumeral joint. No obvious fracture of the osseous glenoid . IMPRESSION: Stable appearance DATA REPOSITORY: RADIATION DOSE DELIVERED:
== END 2023-03-24 15:16 | disposition home or self-care (01) ==
LOC: DIORS 15:15
PROVIDERS: PCP Family Medicine; Visit Provider Physician Assistant
DX: S42.255D Nondisplaced fracture of greater tuberosity of left humerus, subsequent encounter for fracture with routine healing (principal); X58.XXXD Exposure to other specified factors, subsequent encounter
CPT/HCPCS: 73030

== ENCOUNTER 2023-04-05 11:32 | Outpatient (CLI) | payer BC, SELFPAY ==
--- NOTE | 2023-04-05 09:45 | DI.RAD_ITS ---
Exam(s) XR SHOULDER LT COMPLETE 2+V EXAM: XR SHOULDER LT COMPLETE 2+V CLINICAL HISTORY: F/U FRACTURE. TECHNIQUE: 2D digital imaging was performed of the left shoulder. Three images were obtained. Gras hey and Y views were obtained. COMPARISON: CR XR SHOULDER LT COMPLETE 2+V from 03/24/2023 FINDINGS: BONES: There is no change in alignment of the fracture involving the surgical neck of the left humeru s. No new fracture is seen. No bony destructive lesion is seen. JOINTS: No dislocation present. Mild degenerative changes are seen at the acromioclavicular and gleno humeral joints. SOFT TISSUE: The visualized lungs are clear. IMPRESSION: Stable alignment of the proximal left humeral fracture. DATA REPOSITORY: RADIATION DOSE DELIVERED:
== END 2023-04-05 11:33 | disposition home or self-care (01) ==
LOC: DIORS 11:34
PROVIDERS: PCP Family Medicine; Visit Provider Student in an Organized Health Care Education/Training Program
DX: S42.295D Other nondisplaced fracture of upper end of left humerus, subsequent encounter for fracture with routine healing (principal); X58.XXXD Exposure to other specified factors, subsequent encounter
CPT/HCPCS: 73030

== ENCOUNTER 2023-05-03 15:45 | Outpatient (CLI) | payer BC, SELFPAY ==
--- NOTE | 2023-05-03 09:45 | DI.RAD_ITS ---
Exam(s) XR SHOULDER LT COMPLETE 2+V EXAM: XR SHOULDER LT COMPLETE 2+V CLINICAL HISTORY: F/U FRACTURE. TECHNIQUE: 2D digital imaging was performed. COMPARISON: CR XR SHOULDER LT COMPLETE 2+V from 04/05/2023 FINDINGS: Two views. There is again noted stable alignment of the previously described mildly impacted fracture of the hum eral neck. Appearance is unchanged from 04/05/2023. There is no dislocation nor subluxation of the glenohumeral joint IMPRESSION: Stable appearance, unchanged from 04/05/2023. DATA REPOSITORY: RADIATION DOSE DELIVERED:
== END 2023-05-03 15:46 | disposition home or self-care (01) ==
LOC: DIORS 15:45
PROVIDERS: PCP Family Medicine; Visit Provider Student in an Organized Health Care Education/Training Program
DX: S42.272D Torus fracture of upper end of left humerus, subsequent encounter for fracture with routine healing (principal); X58.XXXD Exposure to other specified factors, subsequent encounter
CPT/HCPCS: 73030

== ENCOUNTER 2023-06-21 15:52 | Outpatient (CLI) | payer BC, SELFPAY ==
--- NOTE | 2023-06-21 08:30 | DI.RAD_ITS ---
Exam(s) XR SHOULDER LT COMPLETE 2+V EXAM: XR SHOULDER LT COMPLETE 2+V INDICATION: F/U FRACTURE. COMPARISON: CR XR SHOULDER LT COMPLETE 2+V from 04/05/2023 CR XR SHOULDER LT COMPLETE 2+V from 05/03/2023 TECHNIQUE: 2D digital imaging was performed. Two views. FINDINGS: There has been no change in of the proximal humeral fracture. Continued healing. No new findings. DATA REPOSITORY: RADIATION DOSE DELIVERED:
== END 2023-06-21 15:53 | disposition home or self-care (01) ==
LOC: DIORS 15:52
PROVIDERS: PCP Family Medicine; Visit Provider Student in an Organized Health Care Education/Training Program
DX: S42.292D Other displaced fracture of upper end of left humerus, subsequent encounter for fracture with routine healing (principal); X58.XXXD Exposure to other specified factors, subsequent encounter
CPT/HCPCS: 73030

== ENCOUNTER 2023-07-28 14:18 | Outpatient (CLI) | payer BC, SELFPAY ==
--- NOTE | 2023-07-28 11:00 | DI.RAD_ITS ---
Exam(s) XR WRIST RT COMPLETE EXAM: XR WRIST RT COMPLETE CLINICAL HISTORY: cyst R wrist. TECHNIQUE: 2D digital imaging was performed. COMPARISON: No exams were available for comparison FINDINGS: 3 views No evidence of acute fracture nor carpal dislocation nor significant ulnar variance. There 2 similar size and similar density calcific densities, 1 in each side of the wrist. One is adjacent to the ul griselda styloid and the other is adjacent to the radial styloid. Both measure 3 x 2 mm. These do not sanchez ve the appearance of fracture fragments. Scaphoid and scapholunate distance is normal. 1st carpometacarpal joint appears unremarkable. IMPRESSION: Two small calcific densities as described above,one on each side of the wrist. These do not have the appearance of acute fracture fragments DATA REPOSITORY: RADIATION DOSE DELIVERED:
== END 2023-07-28 14:19 | disposition home or self-care (01) ==
LOC: DIORS 14:18
PROVIDERS: PCP Family Medicine; Visit Provider Student in an Organized Health Care Education/Training Program
DX: M25.841 Other specified joint disorders, right hand (principal)
CPT/HCPCS: 73110

== ENCOUNTER → 2023-08-16 04:07 | Outpatient (CLI) | payer BC, SELFPAY ==
--- NOTE | 2023-08-16 06:45 | DI.MRI_ITS ---
Exam(s) MR UPPER JOINT RT WO EXAM: MR UPPER JOINT RT WO CLINICAL HISTORY: PAIN, CYST JOINT RT HAND, M25.841. TECHNIQUE: Multiplanar multisequence MRI was performed. COMPARISON: None. FINDINGS: Sleeve images is somewhat degraded by motion artifact. BONES: There is a subtle nondisplaced fracture in the proximal aspect of the scaphoid-navicular bone not evident on prior plain films. This is proximal to the waist level. Signal may reflect early dev eloping AVN. Scapholunate distance is normal. No obvious tear of the interosseous ligament at this level. JOINTS: There is a large septated para-articular ganglion cyst on the lateral aspect of the wrist ext ending from the lateral aspect of the radiocarpal joint to level adjacent to the base of the thumb me tacarpal. This measures approximately 5 cm length by 1.3 cm maximum width by 1.8 cm maximum height. TENDONS: Flexors: Unremarkable. No tears nor tenosynovitis. Extensors: Unremarkable. No tears or tenosynovitis. Carpal tunnel:Unremarkable MUSCLES: Unremarkable. MEDIAN NERVE: Unremarkable on this noncontrast examination. LIGAMENTS: The ulnar collateral ligament of the thumb is intact. TRIANGULAR FIBROCARTILAGE: Some increased signal adjacent to the ulnar styloid may indicate still int ernal tearing. There is a small amount of fluid in the distal radioulnar joint. OTHER: IMPRESSION: 1. There is a large septated ganglion cyst on the lateral aspect of the wrist extending from the reg ion of the lateral aspect of the radiocarpal joint to just beyond the base of the thumb metacarpal, m easuring approximately 5 cm long x 1.3 cm maximum width x 1.8 cm maximum height. 2. There is abnormal focal intraosseous signal in the proximal half of the scaphoid-navicular bone w hich is probably an occult healing fracture-nondisplaced. Given the appearance cannot exclude subtle developing avascular necrosis. There is no contour loss of this bone. No increase of scapholunate distance. No other abnormal intraosseous signal in the carpal row bones nor within the proximal meta carpals nor within the distal radius and ulna. 3. No obvious tendon tears nor tenosynovitis. No obvious ligament tears. 4. Increased signal noted in the triangular fibrocartilage adjacent to the ulnar styloid. Consisten t with element of degenerative tearing. There is no significant ulnar variance. DATA REPOSITORY:
== END ==
PROVIDERS: PCP Family Medicine; Visit Provider Student in an Organized Health Care Education/Training Program
DX: M25.841 Other specified joint disorders, right hand (principal)
CPT/HCPCS: 73221

== ENCOUNTER 2023-08-23 08:47 | Day surgery (SDC) | payer BC, SELFPAY ==
--- NOTE | 2023-08-23 08:48 | W.PREOPHP ---
Assessment and Plan Assessment and plan (1) Cyst of joint of right hand: Status: Acute Assessment and plan: Melanie is a 73-year-old female has had recurrence of a cyst about her right wrist and hand. MRI shows a large septated cyst originating from the wrist joint. Given this nature of the cyst I would recommend proceeding with excision. I would avoid injection at this time to save that for a later date in the office. I reviewed the technical details of the surgery. I discussed the risk to include bleeding, infection, pain, stiffness, recurrence, damage to nerves and vessels, damage to muscle and tendons, need for repeat procedures. Despite these risk, she elects to proceed. History of Present Illness History of Present Illness Chief Complaint: Right Hand Cyst Narrative: Melanie is a 73-year-old female who has recurrence of a cyst about the dorsal aspect of the right hand and wrist. She underwent an excision of the cyst back in 2021 but very shortly after had recurrence which is only worsened. Given the location and the abnormal position and size, I ordered an MRI. She denies any other signs of infection. She does have pain around this area and known arthritis about the thumb. The MRI was recently performed and reviewed which shows a large septated cyst originating likely from the scaphoid trapezial joint over the dorsum of the wrist and around the EPL tendon. There is arthrosis seen within the scaphoid trapezial joint as well as a trapeziometacarpal, basal, joint. We have previously discussed an injection of the thumb CMC joint. However, given the location of the cyst I would prefer that we excise the cyst today and then save the injection for a later date allowing some the soft tissues to recover and hopefully maximizing the benefit of the injection. She reports no other medical changes. No chest pain or shortness of breath. No fevers no chills. Review of Systems All systems reviewed & are unremarkable except as noted in HPI and below PFSH All Active Problems Fracture of proximal end of left humerus (Acute 03/21/23) Bleeding diathesis (Acute 01/22/13) Essential hypertension (Acute 12/08/12) COPD (chronic obstructive pulmonary disease) (Chronic) Skin cyst (Acute) Yeast dermatitis (Acute) Von Willebrand disease (Acute) Cyst of joint of right hand (Acute) s/p excision of ganglion cyst DOS: 10/06/21 Medical History Ankle fracture, right Migraine Sciatica Anal fissure IBS (irritable bowel syndrome) Eczema Osteoporosis Neck pain Breast pain, right Macular degeneration Rosacea (01/22/15) Rectal bleeding (09/19/13) Neoplasm of unspecified nature of bone, soft tissue, and skin (10/06/15) Keratosis, seborrheic (02/25/17) History of cervical cancer (02/25/17) Hair thinning (01/22/15) Depressive disorder Bulimia nervosa (11/26/08) Atypical nevus of multiple sites (01/22/15) seborrheic keratoses Anxiety Anorexia nervosa (11/26/08) Acute whiplash injury Surgical History History of open reduction and internal fixation (ORIF) procedure r ankle Tonsillectomy Appendectomy Pt. denies this states she still has it Family History Mother Personal history of malignant neoplasm Lung Father Essential hypertension Diabetes Personal history of malignant neoplasm Heart disease Sister Personal history of malignant neoplasm Brother Essential hypertension Diabetes Heart disease Grandfather Personal history of malignant neoplasm Grandfather No problems noted. Grandmother No problems noted. Grandmother No problems noted. Other Stroke Social History Smoking/Tobacco Use Status: Current every day Tobacco Type: cigarettes Smoking risk assessment performed?: Yes Alcohol Intake: current Alcohol Intake frequency: holidays/special occasions only Substance use type: does not use Housing: house Do you feel safe at home: Yes (Unable to assess privately) Do you feel safe in your relationship?: Yes Additional Social history: 08/23/23 pt smoked 7 cigarettes prior to [facility] admission Meds Allergies and Home Medications Allergies Allergy/AdvReac Type Severity Reaction Status Date / Time acetaminophen Allergy Severe Other (See Verified 08/23/23 09:29 [From Kayli] Comment) codeine Allergy Severe Throat Verified 08/23/23 09:29 Swells/Can't breath latex Allergy Severe Skin Rash Verified 08/23/23 09:29 oxycodone [Oxycodone] Allergy Severe CONVULSION Verified 08/23/23 09:29 propoxyphene napsylate Allergy Severe Other (See Verified 08/23/23 09:29 [From Darvocet-N] Comment) venom-honey bee Allergy Severe HIVES Verified 08/23/23 09:29 hydrocodone bitartrate Allergy Intermediate rash,swelli Verified 08/23/23 09:29 [From Vicodin] ng,SOB varenicline tartrate Allergy Mild Other (See Verified 08/23/23 09:29 [From Chantix] Comment) simvastatin AdvReac Mild NAUSEA Verified 08/23/23 09:29 WELLBUUTRIN Allergy Mild Nausea Uncoded 08/23/23 09:29 Home Medications Medication Instructions Recorded Confirmed Type epinephrine 0.3 mg/0.3 mL 0.3 mg IM ONCE #1 pen 07/03/15 08/23/23 History injection, auto-injector (EpiPen 2-Luis M) fluticasone propionate 220 220 mcg inhalation BID PRN ##2 01/26/16 08/23/23 History mcg/actuation HFA aerosol inhaler (Flovent HFA) albuterol sulfate 90 mcg/actuation 90 mcg inhalation Q4H PRN 05/30/17 08/23/23 History breath activated powder inhaler (ProAir RespiClick) buspirone 7.5 mg tablet 7.5 mg PO BID 05/30/17 08/23/23 History desonide 0.05 % topical cream 15 g topical BID 05/30/17 08/23/23 History fluocinolone 0.01 % topical cream 15 g topical DAILY 05/30/17 08/23/23 History alendronate 70 mg tablet 70 mg PO QWEEK 08/17/21 08/23/23 History budesonide-formoterol HFA 160 2 puff inhalation BID 08/17/21 08/23/23 History mcg-4.5 mcg/actuation aerosol inhaler clobetasol 0.05 % topical ointment 1 applic topical DAILY 09/08/21 08/23/23 History nystatin 100,000 unit/gram topical 1 applic topical BID 09/08/21 08/23/23 History cream sulfacetamide sodium (acne) 10 % 1 applic topical ONCE 09/08/21 08/23/23 History lotion (suspension) calcium phosphate,dibasic 77 1 tab PO DAILY 10/06/21 08/23/23 History mg-vitamin D3 400 unit tablet nystatin 100,000 unit/gram topical 1 applic topical TID Fungal 10/08/21 08/19/23 Rx powder infection #60 grams ondansetron 4 mg disintegrating 4 mg PO Q8H PRN #10 tabs 03/22/23 08/23/23 Rx tablet losartan 25 mg tablet 25 mg PO DAILY 05/03/23 08/23/23 History ibuprofen 600 mg tablet 600 mg PO TID PRN pain #60 tabs 08/23/23 Rx rosuvastatin 10 mg tablet mg 08/23/23 History tramadol 50 mg tablet 50 mg PO Q6H PRN severe 08/23/23 Rx postoperative pain #6 tabs Exam Const General: cooperative, healthy appearing, comfortable and no acute distress Resp Effort & Inspection: normal respiratory effort Auscultation: clear to auscultation bilaterally Cardio Rate: regular rate Rhythm: regular rhythm Results Imaging Imaging Studies: MRI of the right wrist was reviewed. This shows a multiseptated cyst over the dorsum of the right wrist originating from the scaphotrapezial joint and the wrist capsule. There also appears to be some changes at the proximal aspect of scaphoid which could be early avascular necrosis versus a subtle, healing fracture.
[2023-08-23 09:02] VITALS: BP 131/99; PULSE 93; RESP 16; TEMP 36.6; O2SAT 95
[2023-08-23] MEDS: Lactated Ringers 1,000 ML 80 ML IV (09:09)
--- NOTE | 2023-08-23 09:27 | W.ANESPRE ---
General Info Date of Service Date Performed: 08/23/23 Height: 5 ft 3 in Weight: 87.9 kg Body Mass Index (BMI): 34.3 Surgical Procedure: Operation Date: 08/23/23 11:25 Proposed Procedure Side Surgeon p Wrist Cyst Excision Right Joshua Cox MD s Thumb CMC Injection Right Joshua Cox MD Meds Allergies and Home Medications Allergies Allergy/AdvReac Type Severity Reaction Status Date / Time acetaminophen Allergy Severe Other (See Verified 08/23/23 09:29 [From Darvocet-N] Comment) codeine Allergy Severe Throat Verified 08/23/23 09:29 Swells/Can't breath latex Allergy Severe Skin Rash Verified 08/23/23 09:29 oxycodone [Oxycodone] Allergy Severe CONVULSION Verified 08/23/23 09:29 propoxyphene napsylate Allergy Severe Other (See Verified 08/23/23 09:29 [From Darvocet-N] Comment) venom-honey bee Allergy Severe HIVES Verified 08/23/23 09:29 hydrocodone bitartrate Allergy Intermediate rash,swelli Verified 08/23/23 09:29 [From Vicodin] ng,SOB varenicline tartrate Allergy Mild Other (See Verified 08/23/23 09:29 [From Chantix] Comment) simvastatin AdvReac Mild NAUSEA Verified 08/23/23 09:29 WELLBUUTRIN Allergy Mild Nausea Uncoded 08/23/23 09:29 Home Medication Medication Instructions Recorded epinephrine 0.3 mg/0.3 mL 0.3 mg IM ONCE #1 pen 07/03/15 injection, auto-injector (EpiPen 2-Luis M) fluticasone propionate 220 220 mcg inhalation BID PRN ##2 01/26/16 mcg/actuation HFA aerosol inhaler (Flovent HFA) albuterol sulfate 90 mcg/actuation 90 mcg inhalation Q4H PRN 05/30/17 breath activated powder inhaler (ProAir RespiClick) buspirone 7.5 mg tablet 7.5 mg PO BID 05/30/17 desonide 0.05 % topical cream 15 g topical BID 05/30/17 fluocinolone 0.01 % topical cream 15 g topical DAILY 05/30/17 alendronate 70 mg tablet 70 mg PO QWEEK 08/17/21 budesonide-formoterol HFA 160 2 puff inhalation BID 08/17/21 mcg-4.5 mcg/actuation aerosol inhaler clobetasol 0.05 % topical ointment 1 applic topical DAILY 09/08/21 nystatin 100,000 unit/gram topical 1 applic topical BID 09/08/21 cream sulfacetamide sodium (acne) 10 % 1 applic topical ONCE 09/08/21 lotion (suspension) calcium phosphate,dibasic 77 1 tab PO DAILY 10/06/21 mg-vitamin D3 400 unit tablet ibuprofen 600 mg tablet 600 mg PO TID PRN pain #30 tabs 10/06/21 nystatin 100,000 unit/gram topical 1 applic topical TID Fungal 10/08/21 powder infection #60 grams ondansetron 4 mg disintegrating 4 mg PO Q8H PRN #10 tabs 03/22/23 tablet losartan 25 mg tablet 25 mg PO DAILY 05/03/23 rosuvastatin 10 mg tablet mg 08/23/23 Current Visit Medications: Current Medications Generic Name Dose Route Start Last Admin Trade Name Jayaq PRN Reason Stop Dose Admin Acetaminophen 1,000 mg 08/23/23 06:00 Acetaminophen 500 Mg Tab PO 08/23/23 23:59 PREOP CYN Celecoxib 400 mg 08/23/23 06:00 Celecoxib 200 Mg Cap PO 08/23/23 23:59 PREOP CYN Ringer's Solution 1,000 mls @ 80 mls/hr 08/23/23 06:00 08/23/23 09:09 IV 08/23/23 23:59 80 mls/hr INFUSION CYN Administration Cefazolin Sodium/Dextrose 2 gm in 50 mls @ 100 mls/hr 08/23/23 06:00 Ancef Duplex IVPB 08/23/23 23:59 PREOP CYN IV Miscellaneous Supplies 1 each 08/23/23 06:00 Iv Access IV 08/23/23 23:59 DIRECTED CYN Sodium Chloride 0 ml 08/23/23 06:00 Normal Saline Flush 10 Ml Syr IV 08/23/23 23:59 PRN PRN Sodium Chloride 0 ml 08/23/23 06:00 Normal Saline 10 Ml Vial IJ 08/23/23 23:59 DIRECTED PRN Sterile Water 0 ml 08/23/23 06:00 Water,Injection,Sterile 10 Ml Vial IJ 08/23/23 23:59 DIRECTED PRN COUNT INCLUDES THE [facility] Active Problems Active Problems: Problem Status Onset Code Fracture of proximal end of left humerus 03/21/23 S42.202A Bleeding diathesis 01/22/13 D69.9 Essential hypertension 12/08/12 I10 COPD (chronic obstructive pulmonary disease) J44.9 Skin cyst L72.9 Yeast dermatitis B37.2 Von Willebrand disease D68.0 Cyst of joint of right hand M25.841 Medical History Medical History Ankle fracture, right Migraine Sciatica Anal fissure IBS (irritable bowel syndrome) Eczema Osteoporosis Neck pain Breast pain, right Macular degeneration Rosacea (01/22/15) Rectal bleeding (09/19/13) Neoplasm of unspecified nature of bone, soft tissue, and skin (10/06/15) Keratosis, seborrheic (02/25/17) History of cervical cancer (02/25/17) Hair thinning (01/22/15) Depressive disorder Bulimia nervosa (11/26/08) Atypical nevus of multiple sites (01/22/15) seborrheic keratoses Anxiety Anorexia nervosa (11/26/08) Acute whiplash injury Surgical History Surgical History History of open reduction and internal fixation (ORIF) procedure r ankle Tonsillectomy Appendectomy Pt. denies this states she still has it Tobacco Smoking/Tobacco Use Status: Current every day Tobacco Type: cigarettes Smoking cigarettes per day: 10 Alcohol Alcohol Intake: current Alcohol intake frequency: holidays/special occasions only Substance Use Substance use type: does not use Vital Signs and Lab Results Vital Signs Most Recent Vital Signs in EMR: Most Recent Vital Signs Temp Pulse Resp BP Pulse Ox 36.6 C 93 H 16 131/99 H 95 08/23/23 09:02 08/23/23 09:02 08/23/23 09:02 08/23/23 09:02 08/23/23 09:02 Lab Results Blood Type / Crossmatch: No Data to Display Complete Blood Count: No Data to Display Complete Metabolic Panel: No Data to Display Liver Function Panel: No Data to Display Coagulation Panel: No Data to Display Cardiac Panel: No Data to Display Arterial Blood Gas: No Data to Display Venous Blood Gas: No Data to Display Pancreas Panel: No Data to Display Thyroid Panel: No Data to Display Infectious Disease: No Data to Display Blood Cultures: No Data to Display Toxicology Panel: No Data to Display Anesthesia Assessment and Plan Anesthesia History Personal History: No History of Anesthesia Complications Family History: No Family History of Anesthesia Complications Exercise Tolerance Exercise Tolerance: Metabolic Equivalents>4 Pertinent Negatives Pertinent Negatives: No Symptoms of GERD, No Major Cardiovascular Symptoms or Complaints and No History of CVA/TIA Cardiac & Pulmonary Exam Cardiac Exam: Normal S1/S2 Heart Sounds Pulmonary Exam: Clear Bilateral Breath Sounds Implantable Cardiac Device Does patient have a Pacemaker or an ICD?: No Airway Exam Known Difficult Airway: No Mallampati Class: 3 Mouth Opening: Normal (> 3cm) Thyromental Distance: Less than 3 cm Neck Range of Motion: Full ROM Neck Circumference: Normal Teeth Condition: Removable Dentures/Plates Upper, Removable Dentures/Plates Lower and Unable to Assess ASA Classification ASA Score: ASA 2 Emergency Case?: No NPO Status NPO Status: NPO Clears >2 hours, Solids >8 hours Anesthesia Plan Resuscitation Status: Full Code Anesthesia Technique: IV Regional ([place] Block) Airway Planned: Natural Airway Monitors Used: Standard Monitors
[2023-08-23 09:30] VITALS: BMI 34.3
[2023-08-23] MEDS: Acetaminophen 500 MG TAB 1000 MG PO (09:30)
[2023-08-23] MEDS: Celecoxib 200 MG CAP 400 MG PO (09:32)
[2023-08-23] MEDS: Normal Saline Flush 10 ML SYR IV (10:15)
[2023-08-23] MEDS: ceFAZolin 2 GM/50 ML BAG IVPB (10:23)
--- NOTE | 2023-08-23 10:51 | W.PM.DSUDISC ---
Date of service: 08/23/23 Time of Service: 10:57 Discharge Plan Disposition Patient Disposition: Home Condition: Good Discharge Details Reason For Visit: Right wrist cyst Attending Provider: Joshua Cox Primary Care Provider: Ashanti Pradhan Home Meds and New Rx's Prescriptions: New tramadol 50 mg tablet 50 mg PO Q6H PRN (Reason: severe postoperative pain) Qty: 6 0RF Rx Instructions: Take one tablet up to every 6 hours as needed for severe pain ibuprofen 600 mg tablet 600 mg PO TID PRN (Reason: pain) Qty: 60 0RF Continued nystatin 100,000 unit/gram powder 1 applic topical TID Qty: 60 0RF Patient Comments: 08/23/23: pt reports she no longer uses losartan 25 mg tablet 25 mg PO DAILY epinephrine [EpiPen 2-Luis M] 0.3 MG/0.3 ML auto-injector 0.3 mg IM ONCE Qty: 1 Patient Comments: Pt. has never had to use her Epi-Pen. fluticasone propionate [Flovent HFA] 12 GM HFA aerosol inhaler 220 mcg Inhalation BID PRNQty: 2 ProAir RespiClick 90 MCG aerosol powdr breath activated 90 mcg Inhalation Q4H PRN desonide 15 GM cream 15 g Topical BID fluocinolone 15 GM cream 15 g Topical DAILY buspirone 7.5 MG tablet 7.5 mg PO BID Patient Comments: 08/23/23: pt reports she has not taken in 2 months budesonide-formoterol 160-4.5 mcg/actuation HFA aerosol inhaler 2 puff inhalation BID alendronate 70 mg tablet 70 mg PO QWEEK sulfacetamide sodium (acne) 10 % suspension 1 applic topical ONCE nystatin 100,000 unit/gram cream 1 applic topical BID clobetasol 0.05 % ointment 1 applic topical DAILY calcium phos,dibas-vitamin D3 77-400 mg-unit Tablet 1 tab PO DAILY Patient Comments: pt. reports it is a 500 mg 08/23/23: pt reports she takes this every 2 weeks per PCP prescription ondansetron 4 mg tablet,disintegrating 4 mg PO Q8H PRNQty: 10 0RF rosuvastatin 10 mg tablet Patient Comments: TAKE 1 TABLET BY MOUTH ONCE DAILY AT BEDTIME Discontinued ibuprofen 600 mg tablet 600 mg PO TID PRN (Reason: pain) Qty: 30 3RF Discharge Instructions Additional Instructions: Cyst Excision Discharge Instructions Activity: You may use your hand for light activity. You should limit any excessive motion or forceful gripping until follow-up. Dressings: You should keep the splint in place until your follow-up visit. You may rewrap the Carlos bandage if too tight. Cover for hygiene purposes. Medications: - You should take Ibuprofen around the clock as prescribed or per track production engineer's recommendations. - You have Tramadol prescribed for breakthrough pain control. Take only as needed and limit use as much as possible. This may cause constipation. Follow-up: 7-10 days for wound check. Stand Alone Forms: Anesthesia Discharge Inst., Rogelio Gregory ([facility]) Referrals: Joshua Cox MD [ [facility] STAFF PHYSICIAN] - 09/02/23 11:15 am Equipment/Supplies: Splint Activity:: Elevate Remove Dressings/Wound Care:: Do Not Remove Shower/Bathe:: Cover Diet:: As Tolerated Discharge Orders Discharge Orders: Discharge Order (Routine); Ordered 08/23/23 Ordered By: Amberly Paul DS: Diagnosis Discharge Diagnosis (1) Cyst of joint of right hand: Status: Acute
[2023-08-23] MEDS: Lidocaine 1% Pres-Free 30 ML VIAL (11:03)
--- NOTE | 2023-08-23 11:26 | ROE_ITS ---
Date of service: 08/23/23 Time of Service: 10:45 Operative Note Operative Note DATE OF PROCEDURE: 08/23/23 PRE-OP DIAGNOSIS: Right Wrist Ganglion Cyst POST-OP DIAGNOSIS: same PROCEDURE: Excision of wrist ganglion cyst - RIGHT wrist SURGEON: Joshua Cox ANESTHESIA TYPE: [place] Block Refer to Anesthesia Record ESTIMATED BLOOD LOSS: 50 PATHOLOGY: none sent COMPLICATIONS: None Patient was transported to: same day Patient's condition: stable Indications: Melanie is a 73 year old female who I have seen for a recurrent wrist ganglion cyst. It has continued to be bothersome despite some conservative options. Its size and interference with activities continues to cause problems. Therefore, I offered excision of the wrist cyst. I discussed the risks to include bleeding, infection, pain, stiffness, damage to nerve and vessels, recurrence. Despite these risks, she elects to proceed. Findings: There is a septated cyst which seem to arise from the dorsal wrist capsule adjacent to the trapezium compressed by the EPL tendon, branch of the superficial radial nerve and branches of the radial artery deep. Procedure Description: Melanie was greeted in the preoperative holding area. Identity was confirmed and the correct site was identified and marked. Consent was reviewed the patient and signed. History and physical was updated. The patient to take not to the operating room placed in supine position. All bony prominences were well-padded. A double nonsterile tourniquet was placed high up onto the right arm. Susan block was then administered by anesthesia. The arms and prepped with ChloraPrep and draped in a standard fashion. The previous incision was identified. The skin and soft tissues were injected with 1% lidocaine with epinephrine. The skin was incised sharply. Deeper dissection was carried out with tenotomy scissors and careful attention to vascular branches in this area. 1 vein had to be transected. There was multiple branch of the superficial radial nerve which were easily identifiable and they were elevated off of the underlying cystic structure. The extensor pollicis longus tendon also was impressed upon the mass itself. The mass was identified and protected with dissection carried around. This was elevated off the surrounding tissues and elevated off of the dorsal wrist capsule overlying the trapezium. There is significant redundancy of the cyst capsule as it approaches the first CMC joint. The mass is deflated and the cyst capsule was removed. There is a significant ooze from this deeper layer and bipolar electrocautery was utilized. The capsule of the first MCP joint and the scaphoid trapezial joint was entered with tenotomy scissors. However, there was not any apparent cyst structure entering the joint at this location. The wound was then thoroughly irrigated. The deep layer was reapproximated with a 3-0 Vicryl. The skin was closed with a running 4-0 Monocryl followed by skin glue, gauze, and Carlos wrap. At the end the case all counts were correct. The tourniquets were deflated and there is no sign of complication from the Susan block. She was then taken to the PACU in stable condition. There were no noted complications.
[2023-08-23 11:31] VITALS: BP 142/72; PULSE 73; RESP 16; TEMP 36.3; O2SAT 97
--- NOTE | 2023-08-23 11:35 | W.ANESPOSTOP ---
Postoperative Evaluation Date, Time and Location Date Performed: 08/23/23 Time Performed: 11:35 Patient Location: Day Surgery Unit Vital Signs Most Recent Imported Vital Signs: Most Recent Vital Signs Temp Pulse Resp BP Pulse Ox 36.3 C L 73 16 142/72 H 97 08/23/23 11:31 08/23/23 11:31 08/23/23 11:31 08/23/23 11:31 08/23/23 11:31 Pain Score Most Recent Pain Score: Most Recent Pain Score Pain Level 0 08/23/23 11:31 Assessment Mental Status: Awake (Alert & Oriented to Patient Baseline) Airway and Respiratory Function: Patent airway with normal (patient baseline) respiratory exam Cardiovascular Function: Hemodynamically Stable Hydration Status: Adequately Hydrated Nausea & Vomiting: No Nausea or Vomiting Pain: Pt. Denies Any Pain Peripheral Nerve Block: Regional nerve block not resolved at time of post operative discharge
[2023-08-23 11:50] VITALS: BP 135/97; PULSE 72; RESP 16; TEMP 36.4; O2SAT 97
== END 2023-08-23 12:00 | disposition home or self-care (01) ==
PROVIDERS: PCP Family Medicine; Visit Provider Student in an Organized Health Care Education/Training Program
PROC: (CPT 25112; principal; 2023-08-23 11:15)
DX: M67.431 Ganglion, right wrist (principal); J44.9 Chronic obstructive pulmonary disease, unspecified; I10 Essential (primary) hypertension; D68.00 Von Willebrand disease, unspecified; K58.9 Irritable bowel syndrome, unspecified
CPT/HCPCS: 25112; J0360; J0690; J2001; J2250; J2405; J2704

== ENCOUNTER 2024-09-04 14:07 | Outpatient (REF) | payer BC, SELFPAY ==
[2024-09-04 17:11] LABS: Hemoglobin A1C 5.8 % (<5.7)
[2024-09-04 17:59] LABS: ALT 21 U/L (14-59); AST 14 U/L (15-37); Albumin 3.8 g/dL (3.4-5.0); Alkaline Phosphatase 147 U/L (46-116); Anion Gap 6.2 mmol/L (3-11); BUN 17 mg/dL (7-18); Bilirubin, Total 0.4 mg/dL (0.2-1.0); CO2 29.8 mmol/L (21.0-32.0); CREATININE 0.8 mg/dL (0.55-1.02); Calculated LDL 218 mg/dL (<100); Chloride 104 mmol/L (98-107); Cholesterol 277 mg/dL (<200); Estimated GFR 77.27 (mL/min/1.73m2); Glucose 107 mg/dL (74-106); HDL Cholesterol 43 mg/dL (>or=50); Sodium 140 mmol/L (136-145); Total Protein 7.2 g/dL (6.4-8.2); Triglyceride 80 mg/dL (<150)
== END 2024-09-04 14:08 | disposition home or self-care (01) ==
LOC: NCHCN 14:07
PROVIDERS: PCP Family Medicine; Visit Provider Family Medicine
DX: I10 Essential (primary) hypertension (principal); E78.5 Hyperlipidemia, unspecified; R73.03 Prediabetes
CPT/HCPCS: 80053; 80061; 83036

== ENCOUNTER 2024-12-06 09:21 | Outpatient (REF) | payer BC, SELFPAY ==
[2024-12-06 15:21] LABS: ALT 23 U/L (14-59); AST 17 U/L (15-37); Albumin 3.7 g/dL (3.4-5.0); Alkaline Phosphatase 144 U/L (46-116); Anion Gap 6.2 mmol/L (3-11); BUN 19 mg/dL (7-18); Bilirubin, Total 0.4 mg/dL (0.2-1.0); CO2 32.8 mmol/L (21.0-32.0); Calcium 8.9 mg/dL (8.5-10.1); Chloride 103 mmol/L (98-107); Estimated GFR 90.70 (mL/min/1.73m2); Glucose 107 mg/dL (74-106); Potassium 4.7 mmol/L (3.5-5.1); Sodium 142 mmol/L (136-145); Total Protein 7.2 g/dL (6.4-8.2)
[2024-12-06 15:31] LABS: Hemoglobin A1C 5.7 % (<5.7)
== END 2024-12-06 09:22 | disposition home or self-care (01) ==
LOC: NCHCN 09:21
PROVIDERS: PCP Family Medicine; Visit Provider Family Medicine
DX: I10 Essential (primary) hypertension (principal); R73.03 Prediabetes
CPT/HCPCS: 80053; 83036

== ENCOUNTER 2024-12-30 06:05 | Emergency (ER) | payer BC, SELFPAY ==
[2024-12-30] VITALS (7 sets, daily range): BP systolic 150–164; BP diastolic 56–83; PULSE 87–94; RESP 16–20; TEMP 36.5; O2SAT 90–97
--- NOTE | 2024-12-30 06:30 | DI.RAD_ITS ---
Exam(s) XR CHEST 2V PA LATERAL EXAM: XR CHEST 2V PA LATERAL CLINICAL HISTORY: SOB TECHNIQUE: 2D digital imaging was performed. Two views. COMPARISON: CR XR CHEST 2V PA LATERAL from 02/28/2019 FINDINGS: HEART: Normal size. Aorta: Not dilated. PULMONARY VASCULATURE: Normal. MEDIASTINUM: Unremarkable. No visible adenopathy. LUNGS: 3 centimeter opacity in the right upper lobe. 2 centimeter opacity more inferiorly in the right upper lobe. Underlying chronic interstitial changes. PLEURAL SPACE: No pleural effusion or pneumothorax. BONE:Unremarkable for age. SOFT TISSUES: Unremarkable. IMPRESSION: Right upper lobe nodules, neoplastic, an infectious or inflammatory. Recommend CT. The preliminary [facility] report was reviewed. DATA REPOSITORY: RADIATION DOSE DELIVERED:
--- NOTE | 2024-12-30 06:30 | RT.EKG_ITS ---
APPROVED REPORT Exam: Resting ECG Reason for Exam: SOB Patient Location: E HR:81 bpm ECG Measurements Heart Rate 81 AXIS CO 156 P 58 QRSd 99 QRS 8 QT 446 T 56 QTc 520 Conclusion Sinus rhythm...normal P axis, V-rate 60- 99 Consider anteroseptal infarct...Q >30mS, dimin R, V1-V2 Prolonged QT interval...QTc >500mS No STEMI
--- NOTE | 2024-12-30 06:33 | ED.GENADUL_ITS ---
Discharge Plan Discharge Details Chief Complaint: RespSymp Clinical Impression: Shortness of breath Primary Care Provider: Ashanti Pradhan ED Provider: Malinda Harvey Home Meds and New Rx's Prescriptions: No Action nystatin 100,000 unit/gram powder 1 applic topical TID Qty: 60 0RF Patient Comments: 08/23/23: pt reports she no longer uses losartan 25 mg tablet 25 mg PO DAILY epinephrine [EpiPen 2-Luis M] 0.3 MG/0.3 ML auto-injector 0.3 mg IM ONCE Qty: 1 Patient Comments: Pt. has never had to use her Epi-Pen. fluticasone propionate [Flovent HFA] 12 GM HFA aerosol inhaler 220 mcg Inhalation BID PRNQty: 2 ProAir RespiClick 90 MCG aerosol powdr breath activated 90 mcg Inhalation Q4H PRN desonide 15 GM cream 15 g Topical BID fluocinolone 15 GM cream 15 g Topical DAILY buspirone 7.5 MG tablet 7.5 mg PO BID Patient Comments: 08/23/23: pt reports she has not taken in 2 months budesonide-formoterol 160-4.5 mcg/actuation HFA aerosol inhaler 2 puff inhalation BID alendronate 70 mg tablet 70 mg PO QWEEK sulfacetamide sodium (acne) 10 % suspension 1 applic topical ONCE nystatin 100,000 unit/gram cream 1 applic topical BID clobetasol 0.05 % ointment 1 applic topical DAILY calcium phos,dibas-vitamin D3 77-400 mg-unit Tablet 1 tab PO DAILY Patient Comments: pt. reports it is a 500 mg 08/23/23: pt reports she takes this every 2 weeks per PCP prescription ondansetron 4 mg tablet,disintegrating 4 mg PO Q8H PRNQty: 10 0RF rosuvastatin 10 mg tablet Patient Comments: TAKE 1 TABLET BY MOUTH ONCE DAILY AT BEDTIME ibuprofen 600 mg tablet 600 mg PO TID PRN (Reason: pain) Qty: 60 0RF HPI General Mode of arrival: ambulatory . Date/Time Provider Initiated Documentation: 12/30/24 06:15 . Limitations to Documentation: no limitations . Information obtained by: patient . HPI Narrative: 74yo F with HTN, VWD, COPD, not on home O2, presenting for cough and shortness of breath. Has had URI symptoms on and off for a month and a half. Seemed to start up again 2 days ago with cough and nasal congestion. This morning felt short of breath despite home breathing treatments and cough has become productive of clear sputum. No chest pain. Otherwise in her usual state of health with no fevers, chills, rash, nausea, vomiting, abdominal pain, LE edema, or other concerns. Related Data Home Medications ?Medication ?Instructions ?Recorded ?Confirmed epinephrine 0.3 mg/0.3 mL 0.3 mg IM ONCE #1 pen 02/13/24 injection, auto-injector (EpiPen 2-Luis M) fluticasone propionate 220 220 mcg inhalation BID PRN ##2 01/26/16 02/13/24 mcg/actuation HFA aerosol inhaler (Flovent HFA) albuterol sulfate 90 mcg/actuation 90 mcg inhalation Q 4H PRN 05/30/17 02/13/24 breath activated powder inhaler (ProAir RespiClick) buspirone 7.5 mg tablet 7.5 mg PO BID 05/30/1702/12 desonide 0.05 % topical cream 15 g topical BID 8 02/13/24 fluocinolone 0.01 % topical cream 15 g topical DAILY 0 05/30/17 02/13/24 alendronate 70 mg tablet 70 mg PO QWEEK 08/17/2105/07 budesonide-formoterol HFA 160 2 puff inhalation BID 02/13/24 mcg-4.5 mcg/actuation aerosol inhaler clobetasol 0.05 % topical ointment 1 applic topical DA ANTONIA 09/08/21 02/13/24 nystatin 100,000 unit/gram topical 1 applic topical BI D 09/08/21 02/13/24 cream sulfacetamide sodium (acne) 10 % 1 applic topical ONCE 09/08/21 02/13/24 lotion (suspension) calcium phosphate,dibasic 77 1 tab PO DAILY 10/06/21 1 04/15/23 mg-vitamin D3 400 unit tablet nystatin 100,000 unit/gram topical 1 applic topical TI D Fungal 10/08/21 02/13/24 powder infection #60 grams ondansetron 4 mg disintegrating 4 mg PO Q8H PRN #10 ta bs 03/22/23 02/13/24 tablet losartan 25 mg tablet 25 mg PO DAILY 05/03/23 1205/07 ibuprofen 600 mg tablet 600 mg PO TID PRN pain #60 t abs 08/23/23 02/13/24 rosuvastatin 10 mg tablet mg 08/23/23 02/13/24 Previous Rx's ?Medication ?Instructions ?Recorded nystatin 100,000 unit/gram topical 1 applic topical TI D Fungal 10/08/21 powder infection #60 grams ondansetron 4 mg disintegrating 4 mg PO Q8H PRN #10 ta bs 03/22/23 tablet ibuprofen 600 mg tablet 600 mg PO TID PRN pain #60 t abs 08/23/23 Allergies Allergy/AdvReac Type Severity Reaction Status Date / Time acetaminophen (From Allergy Severe Other (See Verified 09/02/23 09:05 Darvocet-N) Comment) codeine Allergy Severe Throat Verified 09/02/23 09:05 Swells/Can't breath latex Allergy Severe Skin Rash Verified 09/02/23 09:05 oxycodone (Oxycodone) Allergy Severe CONVULSION Verified 09/02/23 09:05 propoxyphene napsylate (From Allergy Severe Other (See Verified 09/02/23 09:05 Darvocet-N) Comment) venom-honey bee Allergy Severe HIVES Verified 09/02/23 09:05 hydrocodone bitartrate (From Allergy Intermediate rash,swelli Verified 09/02/23 09:05 Vicodin) ng,SOB varenicline tartrate (From Allergy Mild Other (See Verified 09/02/23 09:05 Chantix) Comment) simvastatin AdvReac Mild NAUSEA Verified 09/02/23 09:05 WELLBUUTRIN Allergy Mild Nausea Uncoded 09/02/23 09:05 General Stated Complaint: RespSymp CLAIRE: 3 Review of Systems Narrative: see HPI Exam Narrative Exam Narrative: General: Non-toxic, well nourished, in no acute distress. Head: Normocephalic, atraumatic Neck: Trachea midline, ?Neck supple. ENT: ?MMM.? Cardiac: ?RRR, no murmurs appreciated Resp: No respiratory distress. + cough. +nasal congestion. Coarse rhonchi throughout, slight expiratory wheeze, good air movement. Abd: ?Non-distended Extremities: ?No deformities.? No peripheral edema. Neurologic: GCS 15. ? Moves all extremities freely against gravity Course Vital Signs Vital signs: Vital Signs Temperature 36.5 C 12/30/24 06:10 Pulse 94 H 12/30/24 06:10 Respiratory Rate 20 12/30/24 06:10 Blood Pressure 164/83 H 12/30/24 06:10 Pulse Oximetry 94 12/30/24 06:10 Temperature 36.5 C 12/30/24 06:10 Temperature Source Oral 12/30/24 06:10 Pulse 94 H 12/30/24 06:10 Respiratory Rate 20 12/30/24 06:10 Respiratory Effort Short of Breath 12/30/24 06:12 Respiratory Depth Normal 12/30/24 06:12 Blood Pressure 164/83 H 12/30/24 06:10 Blood Pressure Position Sitting 12/30/24 06:10 Pulse Oximetry 95 12/30/24 06:28 Oxygen Delivery Method Nasal Cannula 12/30/24 06:28 Oxygen Flow Rate 3 12/30/24 06:28 Pain Level 0 12/30/24 06:10 Comment Pt reported increased SOB. SPO2 decreased to 90% on RA. Placed pt on 3L via NC. SPO2 95% after supplemental oxygen. 12/30/24 06:28 Medical Decision Making 74yo F with HTN, VWD, COPD, not on home O2, presenting for cough and shortness of breath. Has had URI symptoms on and off for a month and a half, seemed to start up again 2 days ago with cough and nasal congestion, this morning short of breath and producing clear sputum. Vital signs reassuring on arrival. Initial sat acceptable; after rooming noted to be ~87% on room air which improved to 95% on 3L NC. No increased WOB on exam; does have scattered rhonchi and expiratory wheeze. Will treat initially with stacked duonebs and methylpred while awaiting results of workup. History and exam not suggestive of pulmonary embolism. Does not appear septic; would not treat empirically. Low suspicion for ACS; out of abundance of caution will get EKG and send troponins. -EKG SR, no ST segment or T wave abnormalities to suggest occlusive WI, prolonged QTc ~ 515 -CBC reassuring with no anemia and borderline leukocytosis, VBG with no hypercapnea. -CXR and remainder of labs pending. Will be signed out to [facility], plan to followup results and reassess. Disposition pending results and clinical course. Lab Data Lab results reviewed: Yes I reviewed the patient's lab results. Labs: Laboratory Tests Range/Units 12/30/24 06:28 WBC (4.4-10.8) 10^3/uL 11.19 H RBC (3.93-5.22) 10^6/uL 4.70 Hgb (11.2-15.7) g/dL 13.0 Hct (36.0-46.0) % 41.7 MCV (80-95) fL 89 MCH (27.0-33.0) pg 27.7 MCHC (32.0-36.0) % 31.2 L RDW (11.7-14.6) % 13.2 Plt Count (130-400) 10^3/uL 348 MPV (8.0-11.0) fL 9.6 Immature Gran % % 0.5 Neutrophils % % 62.9 Lymphocytes % % 28.6 Monocytes % % 4.9 Eosinophils % % 2.1 Basophils % % 1.0 Nucleated RBC % (0.0-0.3) % 0.0 Absolute Neutrophils (1.2-6.7) 10^3/uL 7.04 H Absolute Lymphocytes (1.2-3.4) 10^3/uL 3.20 Absolute Monocytes (0.1-0.8) 10^3/uL 0.55 Absolute Eosinophils (0.0-0.7) 10^3/uL 0.23 Absolute Basophils (0.0-0.2) 10^3/uL 0.11 VBG pH (7.31-7.41) 7.38 VBG pCO2 (41-51) mmHg 49 VBG pO2 mmHg 39 VBG HCO3 (23-28) mmol/L 29 H VBG Total CO2 (24-29) mmol/L 27 VBG O2 Saturation % 73 VBG Base Excess (-2-3) mmol/L 4 H PFSH All Active Problems (Updated 09/02/23 @ 10:59 by Amberly Paul) Shortness of breath (Acute) Hearing loss (Acute) Fracture of proximal end of left humerus (Acute 03/21/23) Bleeding diathesis (Acute 01/22/13) Essential hypertension (Acute 12/08/12) COPD (chronic obstructive pulmonary disease) (Chronic) Skin cyst (Acute) Yeast dermatitis (Acute) Von Willebrand disease (Acute) Cyst of joint of right hand (Acute) S/p excision of recurrent ganglion cyst DOS: 08/23/2023 s/p excision of ganglion cyst DOS: 10/06/21 Medical History Ankle fracture, right Migraine Sciatica Anal fissure IBS (irritable bowel syndrome) Eczema Osteoporosis Neck pain Breast pain, right Macular degeneration Rosacea (01/22/15) Rectal bleeding (09/19/13) Neoplasm of unspecified nature of bone, soft tissue, and skin (10/06/15) Keratosis, seborrheic (02/25/17) History of cervical cancer (02/25/17) Hair thinning (01/22/15) Depressive disorder Bulimia nervosa (11/26/08) Atypical nevus of multiple sites (01/22/15) seborrheic keratoses Anxiety Anorexia nervosa (11/26/08) Acute whiplash injury Surgical History History of open reduction and internal fixation (ORIF) procedure r ankle Tonsillectomy Appendectomy Pt. denies this states she still has it Family History Mother Personal history of malignant neoplasm Lung Father Essential hypertension Diabetes Personal history of malignant neoplasm Heart disease Sister Personal history of malignant neoplasm Brother Essential hypertension Diabetes Heart disease Grandfather Personal history of malignant neoplasm Grandfather No problems noted. Grandmother No problems noted. Grandmother No problems noted. Other Stroke Social History Smoking/Tobacco Use Status: Current every day Tobacco Type: cigarettes Smoking risk assessment performed?: Yes Alcohol Intake: current Alcohol Intake frequency: holidays/special occasions only Substance use type: does not use Housing: house Do you feel safe at home: Yes (Unable to assess privately) Do you feel safe in your relationship?: Yes Additional Social history: 08/23/23 pt smoked 7 cigarettes prior to [facility] admission
[2024-12-30 06:40] LABS: BE (Venous) 4 mmol/L (-2-3); HCO3 (Venous) 29 mmol/L (23-28); O2 Sat (Venous) 73 %; TCO2 (Venous) 27 mmol/L (24-29); pCO2 (Venous) 49 mmHg (41-51); pO2 (Venous) 39 mmHg
[2024-12-30] MEDS: Albuterol/Ipratropium 3 ML UPD VIAL UPD ×3 (06:40→07:10)
[2024-12-30] MEDS: methylPREDNISolone SUCC 125 MG VIAL IM (06:40)
[2024-12-30 06:48] LABS: Abs Immature Grans 0.06 10^3/uL (0.0-0.06); HCT 41.7 % (36.0-46.0); HGB 13.0 g/dL (11.2-15.7); Immature Grans % 0.5 %; MCH 27.7 pg (27.0-33.0); MCHC 31.2 % (32.0-36.0); MCV 89 fL (80-95); MPV 9.6 fL (8.0-11.0); Platelet Count 348 10^3/uL (130-400); RBC 4.70 10^6/uL (3.93-5.22); RDW 13.2 % (11.7-14.6); RDW-SD 43.8 fL; WBC 11.19 10^3/uL (4.4-10.8)
[2024-12-30 07:09] LABS: ALT 29 U/L (14-59); AST 28 U/L (15-37); Albumin 3.7 g/dL (3.4-5.0); Alkaline Phosphatase 135 U/L (46-116); Anion Gap 7.4 mmol/L (3-11); BUN 16 mg/dL (7-18); Bilirubin, Total 0.5 mg/dL (0.2-1.0); CO2 30.6 mmol/L (21.0-32.0); Calcium 9.0 mg/dL (8.5-10.1); Chloride 104 mmol/L (98-107); Estimated GFR 77.27 (mL/min/1.73m2); Glucose 112 mg/dL (74-106); Magnesium 2.3 mg/dL (1.8-2.4); NT-proBNP 31 pg/mL (<300); Potassium 4.0 mmol/L (3.5-5.1); Sodium 142 mmol/L (136-145); Total Protein 7.7 g/dL (6.4-8.2)
[2024-12-30 07:14] LABS: COVID-19 PCR Negative (Negative); RSV PCR Negative (Negative)
[2024-12-30 07:35] LABS: Troponin I 7 ng/L (<or=51)
[2024-12-30 07:58] LABS: Troponin I 7 ng/L (<or=51)
--- NOTE | 2024-12-30 08:00 | DI.CT_ITS ---
Exam(s) CT CHEST WO EXAM: CT CHEST WO CLINICAL HISTORY: pulmonary nodules TECHNIQUE: Imaging Protocol: Axial computed tomography images with coronal and sagittal reformatted images were created and reviewed. Computer aided detection (CAD) was utilized. CONTRAST MATERIAL: Noncontrast COMPARISON: CR,XR XR CHEST 2V PA LATERAL from 12/30/2024 FINDINGS: Pulmonary parenchyma: There are 2 masses noted in the right upper lobe. The more suspicious superior mass measures 3 cm. The more inferior mass measures 2.3 cm. Additional 1.2 centimeter cavitary nodules noted in the medial right lower lobe. Other smaller nodular densities are also present in the right upper lobe. The left lung appears clear. No consolidation. Mild underlying emphysematous changes. Mild bilateral non-specific ground-glass opacities are noted in the upper and lower lobes. Tracheobronchial tree: No bronchiectasis or mucous plugging. Mediastinum and Tiarra: Abnormally enlarged anterior mediastinal lymph node measuring 18 millimeters. Right paratracheal lymph node measuring 2.3 cm. Other smaller right paratracheal and subcarinal nodes are present. Hilar adenopathy difficult to discern without contrast. Pleura: No effusion. No pneumothorax. Heart: The heart is not dilated. Mild coronary artery calcifications are seen. Aorta: Thoracic aorta non-dilated. Mild atherosclerotic changes. Pulmonary arteries: No gross evidence of emboli. Upper abdomen: Enlargement of the the low left adrenal gland. Bones: Degenerative changes in the spine. No lytic or blastic lesions are identified. Soft tissues: Unremarkable. IMPRESSION: Two large right upper lobe spiculated masses. Additional smaller spiculated cavitary nodule in the right lower lobe. Other smaller nodules noted. Findings are consistent with malignancy. Adenopathy is present. There is enlargement of the left adrenal gland which also may represent metastatic disease. The preliminary [facility] report was reviewed. RADIATION DOSE DELIVERED: Total DLP DATA REPOSITORY: All CT scans at this facility are submitted to the National Radiology Data Registry (NRDR) Dose Index Registry (DIR) with the [employer] ([employer]). RADIATION OPTIMIZATION: All CT scans at this facility use at least one of these dose optimization techniques: automated exposure control; mA and/or kV adjustment per patient size (includes targeted exams where dose is matched to clinical indication); or iterative reconstruction.
--- NOTE | 2024-12-30 08:05 | DI.[facility]_ITS ---
PROCEDURE INFORMATION: Exam: XR Chest Exam date and time: 12/30/2024 7:39 AM Age: 74 years old Clinical indication: Shortness of breath TECHNIQUE: Imaging protocol: Radiologic exam of the chest. Views: 2 views. COMPARISON: CR XR CHEST 2V PA LATERAL 02/28/2019 2:15 PM FINDINGS: Lungs: Multiple nodular densities in the right lung measuring up to 2.8 cm. Pleural spaces: No large pleural effusion seen. Heart/Mediastinum: No cardiomegaly. Bones/joints: No acute abnormality. IMPRESSION: Multiple nodular densities in the right lung. Consider neoplastic, infectious, inflammatory etiologies. Clinical correlation is needed. Dictated and Authenticated by: Chana Stover MD. Orderin Wes Petty MD
--- NOTE | 2024-12-30 09:02 | DI.[facility]_ITS ---
PROCEDURE INFORMATION: Exam: CT Chest Without Contrast; Diagnostic Exam date and time: 12/30/2024 8:24 AM Age: 74 years old Clinical indication: Other: Pulmonary nodules TECHNIQUE: Imaging protocol: Diagnostic computed tomography of the chest without contrast. 3D rendering (Not supervised by radiologist): MIP and/or 3D reconstructed images were created by the technologist. COMPARISON: CR XR CHEST 2V PA LATERAL 12/30/2024 7:39 AM FINDINGS: Limitations: Mild motion artifact. No contrast was administered, limiting evaluation for some pathologies. Thyroid: 1 cm right thyroid nodule. Heterogeneous enhancement of the thyroid. Consider follow-up. Lungs: Spiculated nodules in the right upper lobe measuring 2.6 and 2.0 cm respectively. 1.2 cm cavitary nodule in the right lower lobe. Multiple additional smaller nodular densities also present. Faint ground-glass opacities in both lungs, nonspecific. Pleural spaces: No pleural effusion. Heart: No pericardial effusion. Coronary arteries: Coronary artery calcifications. Lymph nodes: Mediastinal and right hilar lymphadenopathy. Vasculature: Atherosclerotic changes in the aorta and its branches. Adrenal glands: Indeterminate left adrenal nodules. Metastases should be considered. Bones/joints: No acute pertinent abnormality appreciated. Soft tissues: No acute pertinent abnormality appreciated. IMPRESSION: 1. Spiculated right pulmonary nodules as described above, suspicious for malignancy. Other etiologies not excluded. 2. Additional findings as above. 3. THIS REPORT CONTAINS FINDINGS THAT MAY BE CRITICAL TO PATIENT CARE. The findings were verbally communicated via telephone conference with Markie Myles at 9:00 AM EDT on 12/30/2024. The findings were acknowledged and understood. Dictated and Authenticated by: Chana Stover MD. Orderin Shameka Aden MD
== END 2024-12-30 09:37 | disposition home or self-care (01) ==
PROVIDERS: Student in an Organized Health Care Education/Training Program; Emergency Provider General Practice; PCP Family Medicine
DX: R06.02 Shortness of breath (principal); R91.8 Other nonspecific abnormal finding of lung field; J44.1 Chronic obstructive pulmonary disease with (acute) exacerbation
CPT/HCPCS: 99284; 99285; 36415; 96372; 71250; 80053; 82805; 87637; 93005; 71046; 83735; 83880; 84484; 85025; 93010; J2919; J7620

== ENCOUNTER 2025-01-25 02:45 | Outpatient (CLI) | payer BC, SELFPAY ==
[2025-01-25] MEDS: Inhaler, Assist Device 1 EACH MC (09:26)
[2025-01-25] MEDS: Levalbuterol HFA 15 GM INH 4 PUFF IH (09:27)
--- NOTE | 2025-01-25 11:37 | W.PFT ---
Date of service: 01/25/25 Time of Service: 08:02 Pulmonary Function Test Result Indications: COPD Impression 1. Good patient effort was noted. ATS standards for reproducibility were met. 2. Spirometry showed a reduced FEV1:FVC ratio and reduced midflows. FEV1 was 76% predicted. Overall consistent with mild-moderate obstructive lung disease. 3. Following the administration of a bronchodilator there was not a significant response 4. TLC was normal. No evidence of restrictive lung disease 5. DLCO was 69%, consistent with a moderate defect in alveolar gas exchange
== END 2025-01-25 02:46 | disposition home or self-care (01) ==
LOC: RT 02:45
PROVIDERS: PCP Family Medicine; Visit Provider Internal Medicine Pulmonary Disease
DX: J44.9 Chronic obstructive pulmonary disease, unspecified (principal)
CPT/HCPCS: 94060; 94726; 94729

== ENCOUNTER 2025-02-01 09:21 | Outpatient (REF) | payer BC, SELFPAY ==
--- NOTE | 2025-02-01 09:05 | PAPNONF_PTH ---
PATIENT: Melanie Kaye LOC: [facility] U#:[id number] AGE/SX: 74/F ROOM: RE02/01/[address]: Cynthia Dudley MD : 1950 BED: DIS: 02/01/2025 SPEC #: [id number] RECD: 02/01/25 13:01 STATUS: SHILPA AMOS #: [id number] JACKIE: 02/01/25 09:[address]: Cynthia Dudley DEPT: [facility] Cytology RECD BY: Mary Mendoza ENTERED: 02/01/25 13:01 SP TYPE: REBECCA JAVED DR: Ashanti Pradhan Tissues: 1 - BODY FLUID CYTO-FINE NEEDLE [facility]ATE[facility] Procedures: BODY FLUID CYTO-FINE NEEDLE [facility]IRATE[facility] Comments: [id number] (REFRIGERATED)
== END 2025-02-01 09:22 | disposition home or self-care (01) ==
LOC: LBN 09:21
PROVIDERS: PCP Family Medicine; Visit Provider Surgery
DX: C77.1 Secondary and unspecified malignant neoplasm of intrathoracic lymph nodes (principal)
CPT/HCPCS: 88104

== ENCOUNTER 2025-02-28 12:37 | Outpatient (REF) | payer BC, SELFPAY ==
[2025-02-28 17:09] LABS: Cholesterol 103 mg/dL (<200); HDL Cholesterol 44 mg/dL (>or=50)
[2025-02-28 17:35] LABS: GGT 15 U/L (<38)
[2025-02-28 18:00] LABS: Hemoglobin A1C 5.8 % (<5.7)
== END 2025-02-28 12:38 | disposition home or self-care (01) ==
LOC: NCHCN 12:37
PROVIDERS: PCP Family Medicine; Visit Provider Family Medicine
DX: E78.5 Hyperlipidemia, unspecified (principal); R73.03 Prediabetes; R74.8 Abnormal levels of other serum enzymes
CPT/HCPCS: 80061; 82977; 83036